=== PATIENT | male | born 1950 | race Caucasian/White ===

== ENCOUNTER → 2016-03-19 | Outpatient (CLI) | payer MEDICARE, MEDICAID ==
[2016-03-19 10:10] LABS: ALBUMIN 3.4 GM/DL (3.2-5.2); ALBUMIN/GLOBULIN RATIO 1.21 (1.00-1.93); ALKALINE PHOSPHATASE 128 U/L (45-117); ALT/SGPT 16 U/L (12-78); ANION GAP 7 MEQ/L (8-16); AST/SGOT 13 U/L (15-37); BILIRUBIN,TOTAL 0.3 MG/DL (0.2-1.0); BLOOD UREA NITROGEN 15 MG/DL (7-18); CALCIUM LEVEL 8.4 MG/DL (8.8-10.2); CARBON DIOXIDE LEVEL 31 MEQ/L (21-32); CHLORIDE LEVEL 102 MEQ/L (98-107); CREATININE FOR GFR 0.81 MG/DL (0.70-1.30); GLOMERULAR FILTRATION RATE > 60.0 (>49); GLUCOSE, FASTING 122 MG/DL (80-110); POTASSIUM SERUM 4.3 MEQ/L (3.5-5.1); SODIUM LEVEL 140 MEQ/L (136-145); TOTAL PROTEIN 6.2 GM/DL (6.4-8.2)
== END ==
LOC: M LAB 08:46
PROVIDERS: ATTEND Internal Medicine
DX: S00.83XA Contusion of other part of head, initial encounter (principal); X58.XXXA Exposure to other specified factors, initial encounter; Y92.89 Other specified places as the place of occurrence of the external cause; Y93.89 Activity, other specified; Y99.8 Other external cause status

== ENCOUNTER → 2016-05-05 | Outpatient (CLI) | payer MEDICARE, MEDICAID ==
[2016-05-05 18:02] LABS: BLOOD UREA NITROGEN 15 MG/DL (7-18); GLOMERULAR FILTRATION RATE > 60.0 (>49)
== END ==
LOC: M LAB 16:06
PROVIDERS: ATTEND Otolaryngology
DX: R22.1 Localized swelling, mass and lump, neck (principal)

== ENCOUNTER → 2016-05-13 | Outpatient (CLI) | payer MEDICARE, MEDICAID ==
[~2016-05-13] MED LIST: ISOVUE-370 76% 100ML VIAL (Q9967) As Ordered ONE
--- NOTE | 2016-05-13 16:03 | REP ---
CT BRAIN WITHOUT AND WITH CONTRAST: 05/13/2016. Comparison: 03/23/2016 and 06/02/2015. Clinical history. Soft tissue swelling superolateral to the right orbit with mass. Technique: Precontrast and postcontrast imaging performed through the brain with bone windows provided. Dose of 75 ml of Isovue 370 given. Findings: The precontrast images show lacunar infarct in left basal ganglia, unchanged. Lateral ventricles symmetric without dilatation or displacement, their size proportionate to mild atrophy. There is more cerebellar atrophy, however, and this is symmetric, but unchanged. Brainstem was unremarkable. Escobar-white junction differentiation maintained. However, there are areas of decreased attenuation in the periventricular white matter representing small-vessel ischemic disease. No intraparenchymal mass, hemorrhage, edema or midline shift. After contrast administration, there is no abnormal enhancement, mass, gyriform enhancement, abnormal meningeal enhancement or vascular lesion identified. Basal cisterns are intact. Mastoids and visualized sinuses were clear. The skull base and calvarium show no fracture or focal lesion. The soft tissue mass lateral to the orbit is much reduced in size with some enhancement in this region up to 4.7 mm in thickness whereas on the previous study at the same level it measured 13.5 mm in thickness. Increased attenuation with contrast is noted. Enhancement along the galea on that right side is noted. The mass seen in the preauricular region on the 2016 CT is no longer present. There are no other scalp masses identified. The bone windows show no fracture or focal lesion of the calvarium or skull base. Mastoids intact. Impression: 1. Much improved soft tissue mass in the right periorbital soft tissues. Has a maximum thickness now 4.7 mm. On the February study, it had a thickness of 13.5 mm. It was intermediate between those two values in the May 2015 exam. 2. Resolution entirely in the preauricular soft tissue mass with enhancement compared to the appearance on the 2016 study. 3. Old lacunar infarcts in the basal ganglia with some chronic small vessel white matter ischemic changes and atrophy of the cerebellum, greater than cerebral hemispheres. No enhancing mass within the brain, intracranial hemorrhage, acute infarct or other significant finding. Signed by Jerrod Modi MD 05/13/2016 04:22 P
--- NOTE | 2016-05-13 16:21 | REP ---
CT NECK WITH CONTRAST: 05/13/2016. Clinical history: Lymphoma. Prominent left torus tubarius. Mass superior lateral to the right orbit. TECHNIQUE: The patient received a bolus of 75 ml of Isovue 370, scanning through the neck with coronal and sagittal reconstructions. Bone windows are also reviewed. FINDINGS: Thickening of soft tissues lateral to the right orbit noted in part on this study; it is thinner than on the CT brain 03/23/2016. Please see CT brain report. Base of the brain was grossly intact. Bone windows show visualized sinuses and mastoids clear. Orbits and contents are grossly symmetric and unremarkable. Septum is deviated towards the right. The craniocervical junction is intact. There is spondylosis at C6-7 without compression fracture or destructive lesion. There is no central canal stenosis. The nasopharyngeal airway is patent. There is fullness of the left tonsil and torus tubarius in the left nasopharynx. Slight narrowing of that nasopharyngeal airway. The hypopharynx is without mass. The epiglottis, valleculae and piriform sinuses were intact. The larynx and subglottic trachea unremarkable. Symmetric sternocleidomastoid muscles noted. The submandibular and parotid glands are generally symmetric and grossly intact as well. Tongue base is grossly unremarkable. Parapharyngeal space shows fat planes preserved. No pathologic sized submental, jugular, anterior or posterior cervical chain nodes with scattered shotty nodes on both sides. The right carotid space shows an 8.3 mm node on image 33 with the left carotid space showing the largest node 7.6 mm diameter. Bone windows shows spinous processes, lamina, pedicles, facets, transverse processes and transverse foramina grossly intact. There are some minor degenerative changes. The first three paired ribs and thoracic vertebral bodies were unremarkable and the lung apices show minor fibrotic changes without acute finding. The aortic arch without aneurysm, but quite ectatic and only seen in part. No supraclavicular mass. IMPRESSION: 1. Fullness of the left torus tubarius and extending down into the left tonsil with some nasopharyngeal airway stenosis. Right tonsil is smaller. The epiglottis, piriform sinuses and valleculae unremarkable. 2. Scattered nodes bilaterally with no pathologic sized adenopathy and with the submandibular and parotid glands symmetric and normal. The oropharynx, hypopharynx, larynx and trachea intact. 3. Cervical spondylosis C6-7. Signed by Jerrod Modi MD 05/13/2016 04:23 P
== END ==
LOC: M RAD 14:26
PROVIDERS: ATTEND Otolaryngology
DX: R22.1 Localized swelling, mass and lump, neck (principal)
CPT/HCPCS: 70470; 70491; Q9967

== ENCOUNTER → 2016-06-22 | Day surgery (SDC) | payer MEDICARE, MEDICAID ==
[~2016-06-22] VITALS: Ht 170.2 cm; Wt 96.6 kg
[~2016-06-22] MED LIST changes: +ASPI32ECTA PO; +CALC500T36 PO; +CLAR10CA3 PO; +DEBR6.5S4 AU; +DESFLURANE 240 ML INHALANT As Ordered ONE; +DITR5TAB PO; +EPINEPHrine 1MG/ML INJ 30ML MD-VIAL As Ordered ONE; +ETOMIDATE INJ 20MG/10ML VIAL As Ordered ONE; -ISOVUE-370 76% 100ML VIAL (Q9967) As Ordered ONE; +LIDOCAINE 2% INJ 100 MG/5 ML SDV (FOR ANES.) As Ordered ONE; +LIDOCAINE W/EPINEPHRINE 1% 20ML VIAL As Ordered ONE; +LORA10CA PO; +LR 1,000 ML IV SCH; +LUPR45IN IM; +LUTE6CAP2 PO; +METHYLENE BLUE 0.5% (5MG/ML) 10 ML AMP (PROVAYBLUE)(Q9968 PER 1MG) As Ordered ONE; +MULT1TAB28 PO; +ONDANSETRON 4MG/2ML VIAL (J2405) As Ordered ONE; +ONDANSETRON 4MG/2ML VIAL (J2405) IV PRN; +PERCOCET 5MG/325MG TAB PO PRN; +PHEN1TAB26 PO; +PHEN64.8 PO; +PROPOFOL 200 MG/20 ML VIAL As Ordered ONE; +PROT1TAB2 PO; +TUSSLIQ3 PO; +VITA-112 PO; +dexameTHASONE 4 MG/ML 1ML VIAL (J1100) IV ONE; +fentaNYL 100 MCG/2 ML INJECTION (J3010) As Ordered ONE; +fentaNYL 100 MCG/2 ML INJECTION (J3010) IV PRN
[2016-06-22 15:27] VITALS: BP 162/85
--- NOTE | 2016-07-02 19:27 | RO ---
DATE OF PROCEDURE: 06/22/2016 PREOPERATIVE DIAGNOSIS: Swelling of the left nasopharynx and left oropharynx. POSTOPERATIVE DIAGNOSIS: Swelling of the left nasopharynx and left oropharynx. PROCEDURE PERFORMED: 1. Nasal endoscopy with biopsy of the left nasopharynx and left torus tubarius. 2. Biopsy of the mass of the left oropharynx. SURGEON: Tyler Hoover MD POWER OPERATOR: ANESTHESIA: General. CLINICAL PREAMBLE: This 66-year-old man presented to the office initially for consultation of a swelling over the right forehead region. This has resolved. Patient has history of lymphoma. Physical examination revealed a mass lesion extending from the left nasopharynx down to the left oropharynx. The finding was confirmed on the CT scan of the neck. Management options including biopsy of the swelling of the left nasopharynx and oropharynx have been discussed. He understood and consented to the procedure. DESCRIPTION OF PROCEDURE: Patient was identified in preoperative holding and brought to the operating room in stable condition. In supine position on the operating table, patient received general anesthesia followed by orotracheal intubation without incident. Patient was prepped and draped in the usual fashion for the above procedure. Both sides of the nasal cavity were packed using pledgets soaked in 1:1000 epinephrine. After a waiting period, the pledgets were removed. Both sides of the nasal cavity were inspected using 0-degree nasal endoscope. Swelling of the left nasopharynx was noted. Biopsy was performed from the swelling of the left nasopharynx. Biopsy was also performed from the inferior aspect of the left torus tubarius, which also appeared to be swollen. At this time, hemostasis was achieved using pledgets soaked in Afrin solution placed over the biopsy site. The Ac-Artemio gag then was inserted and suspended. A long nodular swelling was noted to be posterior to the left posterior tonsil pillar. Decision was then made to perform the two 5 mm punch biopsy from the lesion. Hemostasis was achieved using silver nitrate, and the wound was then closed using #3-0 chromic suture. All the biopsy specimens were sent to pathology as fresh specimen according to the lymphoma protocol for further processing. At the end of the procedure, sponge and instrument counts were correct. No complication was encountered. Estimated blood loss was less than 10 mL. General anesthesia was reversed, and patient was extubated and brought to recovery room in stable condition.
== END | disposition home or self-care (01) ==
LOC: M SDC 10:00
PROVIDERS: ATTEND Otolaryngology
DX: C85.12 Unspecified B-cell lymphoma, intrathoracic lymph nodes (principal); E78.00 Pure hypercholesterolemia, unspecified; K21.9 Gastro-esophageal reflux disease without esophagitis; R29.898 Other symptoms and signs involving the musculoskeletal system; G40.909 Epilepsy, unspecified, not intractable, without status epilepticus; I25.2 Old myocardial infarction; C61 Malignant neoplasm of prostate; I10 Essential (primary) hypertension; N40.0 Benign prostatic hyperplasia without lower urinary tract symptoms; R32 Unspecified urinary incontinence; I49.9 Cardiac arrhythmia, unspecified; C85.90 Non-Hodgkin lymphoma, unspecified, unspecified site; Z88.4 Allergy status to anesthetic agent; Z79.899 Other long term (current) drug therapy; Z79.82 Long term (current) use of aspirin; Z95.0 Presence of cardiac pacemaker; Z87.820 Personal history of traumatic brain injury; Z92.3 Personal history of irradiation; Z87.891 Personal history of nicotine dependence
CPT/HCPCS: 31237; 88305; J1100; J2405; J3010; Q9968

== ENCOUNTER → 2016-07-08 | Outpatient (CLI) | payer MEDICARE, MEDICAID ==
[~2016-07-08] MED LIST changes: -DESFLURANE 240 ML INHALANT As Ordered ONE; -EPINEPHrine 1MG/ML INJ 30ML MD-VIAL As Ordered ONE; -ETOMIDATE INJ 20MG/10ML VIAL As Ordered ONE; -LIDOCAINE 2% INJ 100 MG/5 ML SDV (FOR ANES.) As Ordered ONE; -LIDOCAINE W/EPINEPHRINE 1% 20ML VIAL As Ordered ONE; -LR 1,000 ML IV SCH; -METHYLENE BLUE 0.5% (5MG/ML) 10 ML AMP (PROVAYBLUE)(Q9968 PER 1MG) As Ordered ONE; -ONDANSETRON 4MG/2ML VIAL (J2405) As Ordered ONE; -ONDANSETRON 4MG/2ML VIAL (J2405) IV PRN; -PERCOCET 5MG/325MG TAB PO PRN; -PROPOFOL 200 MG/20 ML VIAL As Ordered ONE; -dexameTHASONE 4 MG/ML 1ML VIAL (J1100) IV ONE; -fentaNYL 100 MCG/2 ML INJECTION (J3010) As Ordered ONE; -fentaNYL 100 MCG/2 ML INJECTION (J3010) IV PRN
== END ==
LOC: M LAB 12:27
PROVIDERS: ATTEND Radiology Radiation Oncology
DX: C61 Malignant neoplasm of prostate (principal)

== ENCOUNTER → 2016-07-20 | Outpatient (CLI) | payer MEDICARE, MEDICAID ==
[~2016-07-20] MED LIST changes: +ACET-654 PO; +COLA100C3 PO; +OXYB5TA PO
--- NOTE | 2016-07-21 10:12 | REP ---
PET/CT: HISTORY: Staging follicular lymphoma. There is also a history of adenocarcinoma of the prostate. COMPARISONS: Comparison PET/CT study July 24, 2015. TECHNIQUE: 57 minutes following the intravenous injection of a 9.7 mCi dose of F-18 FDG, three-dimensional PET scintigraphy is acquired from the skull base to the proximal thighs. Triplanar noncontrast CT scanning is acquired through the same anatomic range for attenuation correction, and image registration with scan parameters optimized to minimize radiation exposure to the patient. PET scintigraphy and CT datasets were fused and displayed on a workstation with multiplanar and projection display capability. PET/CT FINDINGS: There is an area of linear physiologic skeletal muscle uptake in the periarticular muscles of the right shoulder. There is also some skeletal muscle uptake adjacent to the right hip. Hiatal hernia, ventral, and right inguinal hernias are again seen. There is a subcentimeter, normal size, hypermetabolic lymph node in the right anterior jugular chain at the level of the angle of the mandible. Maximum standard uptake value 6.1. There is normal variant parapharyngeal uptake. There is a right supraclavicular hypermetabolic node as well. This displays a maximum standard uptake value of 6.6. This node is slightly larger 1.8 cm in greatest diameter. There is minimally hypermetabolic uptake in a right axillary lymph node with maximum SUV value 2.9. This lymph node measures 1.3 x 0.5 cm. There is mildly hypermetabolic uptake in a tiny right hilar lymph node inferiorly, maximum standard uptake value 4.4. The spleen is mildly enlarged measuring 13.8 cm today. This dimension is increased from the comparison CT study March 31, 2016 when this dimension was 11.5 cm. There is a mottled pattern of increased uptake in the spleen with standard uptake value ranging up to 6.4. No pulmonary parenchymal hypermetabolic uptake is seen. There is some linear fibrosis in the right upper lobe. There is mildly increased hypermetabolic uptake in a small periaortic pericaval lymph node in the retroperitoneum. Maximum standard uptake value 3.4, this small node measures 6 x 11 mm. There is discernible non-hypermetabolic uptake in a elizabet tissue in the left distal external iliac lymph node chain, just above the inguinal canal. Maximum SUV value here is 2.1. This is less prominent than on the prior study. No inguinal adenopathy or elizabet hypermetabolic uptake is seen. IMPRESSION: In comparison with the prior study of July 24, 2015, the inguinal and pelvic elizabet activity has regressed significantly. Retroperitoneal elizabet activity is less prominent. However, the spleen has enlarged and its uptake is more avid. The axillary elizabet uptake seen previously and the mediastinal elizabet uptake seen previously have regressed. There is less neck elizabet uptake. Signed by Pelon Ash MD 07/21/2016 02:08 P
== END ==
LOC: M PLARAD 12:30
PROVIDERS: ATTEND Internal Medicine Medical Oncology
DX: C82.90 Follicular lymphoma, unspecified, unspecified site (principal); R16.1 Splenomegaly, not elsewhere classified; Z85.46 Personal history of malignant neoplasm of prostate
CPT/HCPCS: 78815; A9552

== ENCOUNTER → 2016-07-21 | Outpatient (CLI) | payer MEDICARE, MEDICAID ==
[~2016-07-21] MED LIST changes: -ACET-654 PO; -COLA100C3 PO; -OXYB5TA PO
--- NOTE | 2016-07-22 05:26 | RADONC ---
RADIATION ONCOLOGY FOLLOWUP NOTE: DATE: 07/21/2016 CHART NUMBER: [id number]. DIAGNOSIS: Prostate cancer. STAGE: II A, [id number]. ECOG PERFORMANCE STATUS: Zero FOLLOWUP NOTE: Mr. Lemus is a very pleasant, 66-year-old white male with the diagnosis of a stage II A, [id number] moderate to poorly differentiated, [place] score 7 (3-4), adenocarcinoma of prostate who is presenting to us today for routine followup visit 7 months post completion of external beam radiation therapy. The patient presents today reporting that he is doing quite well with no complaints at this time related to his radiation therapy or disease. He has no urinary bowel difficulties. No bone pain. REVIEW OF SYSTEMS: The patient's review of systems is positive for continued physical limitations. He walks with a walker. He denies nausea, vomiting, fevers, chills, night sweats, diplopia, headaches, anxiety or depression, anorexia, weight loss, visual disturbances, chest pain, urinary or bowel difficulties, bone pain. PHYSICAL EXAMINATION: The patient is a well-developed, well-nourished male in no acute distress. HEENT exam is normocephalic, atraumatic. Extraocular movements are intact. There is no palpable cervical, supraclavicular, infraclavicular, axillary, or inguinal lymphadenopathy present. Lungs are clear to auscultation and percussion. Heart has a regular rate and rhythm. Abdomen is benign with no hepatosplenomegaly, masses, or tenderness. Rectal examination reveals a normal anal sphincter tone. His prostate is smooth with no evidence of nodularity. Skeletal examination reveals no tenderness to pressure or percussion of the bony skeleton. Extremities reveal no clubbing, cyanosis, or edema. Neurologic exam is grossly intact, as is the remainder of the physical examination. ASSESSMENT: The patient is clinically EYAD at this time and will be seen by us again in 6 months for further followup. He will also continue to be followed by his other physicians as well. cc: Dontrell Lloyd MD
== END ==
LOC: M ONCR 13:43
PROVIDERS: ATTEND Radiology Radiation Oncology
DX: C61 Malignant neoplasm of prostate (principal)

== ENCOUNTER 2016-08-11 10:46 | Emergency (ER) | payer MEDICARE, MEDICAID ==
[~2016-08-11] VITALS: Ht 172.7 cm; Wt 94.7 kg
[2016-08-11] MEDS ORDERED: OXYB5TA PO (11:16)
[2016-08-11] MEDS ORDERED: ACET-654 PO (11:19)
[2016-08-11] MEDS ORDERED: COLA100C3 PO (11:22)
[2016-08-11 12:09] LABS: BASO % 0.3 % (0.0-1.0); EOS % 0.7 % (0.0-3.0); LARGE UNSTAINED CELL % 0.4 % (0.0-4.0); LYMPH # 0.4 K/mm3 (1.5-4.5); LYMPH % 18.4 % (24.0-44.0); MEAN CORPUSCULAR HEMOGLOBIN 33.9 pg (27.0-33.0); MEAN CORPUSCULAR VOLUME 96.9 fl (80.0-96.0); MONO % 0.9 % (0.0-5.0); NEUTROPHILS # 1.8 K/mm3 (1.8-7.7); NEUTROPHILS % 79.2 % (36.0-66.0); PLATELET COUNT, AUTOMATED 108 k/mm3 (150-450); RED CELL DISTRIBUTION WIDTH 12.7 % (11.5-14.5); WHITE BLOOD COUNT 2.2 K/mm3 (4.0-10.0)
[2016-08-11 12:20] LABS: ANION GAP 10 MEQ/L (8-16); BLOOD UREA NITROGEN 23 MG/DL (7-18); CALCIUM LEVEL 8.5 MG/DL (8.8-10.2); CARBON DIOXIDE LEVEL 27 MEQ/L (21-32); CHLORIDE LEVEL 100 MEQ/L (98-107); CREATININE FOR GFR 0.89 MG/DL (0.70-1.30); GLOMERULAR FILTRATION RATE > 60.0 (>49); GLUCOSE, FASTING 120 MG/DL (80-110); POTASSIUM SERUM 3.6 MEQ/L (3.5-5.1); SODIUM LEVEL 137 MEQ/L (136-145)
--- NOTE | 2016-08-11 12:34 | REP ---
SINGLE VIEW CHEST: COMPARISON: 08/04/2015. There is no evidence of acute infiltrate. No pleural effusion is seen. The heart is normal in size. The mediastinal silhouette is unremarkable. The visualized osseous structures are intact. Left dual lead pacemaker is again noted unchanged in position. IMPRESSION: No acute pulmonary disease. Signed by Handy Escobar MD 08/11/2016 07:47 P
--- NOTE | 2016-08-11 13:18 | REP ---
KUB ABDOMEN AND PELVIS: KUB film of the abdomen and pelvis performed. There is moderate fecal material in both the splenic flexure and hepatic flexure without evidence of bowel obstruction. No dilated small bowel loops are seen. There are two phleboliths in the left pelvis. There are six metallic clips in the lower pelvis in the region of the prostate. Metallic clips are seen in the right upper quadrant. There are degenerative changes of the spine. IMPRESSION: Moderate fecal material in the flexures of the colon superiorly. No evidence of bowel obstruction. Signed by Handy Escobar MD 08/11/2016 07:47 P
[2016-08-11 13:55] VITALS: BP 107/63
--- NOTE | 2016-08-11 16:32 | ECGEPIP ---
Stationary ECG Study [facility] [place] - ED Test Date: 2016-08-11 Pat Name: JEFFREY EVANS Department: Room: - Gender: M Right Of Way Cutter: jayme : 1950 Requested By: Rex Salas Order Number: [id number] Reading MD: Leti Larry Measurements Intervals Connelly Rate: 69 P: 14 ME: 186 QRS: 30 QRSD: 86 T: 12 QT: 381 QTc: 410 Interpretive Statements ELECTRONIC ATRIAL PACEMAKER ABNORMAL RHYTHM ECG NSTTW ABNORMALITY NO PRIOR FOR COMPARISON Electronically Signed On 08-11-2016 16:31:46 EDT by Leti Larry
== END 2016-08-11 14:08 | disposition home or self-care (01) ==
LOC: EDBD 10:46 → M ED 11:41
DX: R55 Syncope and collapse (principal); C85.90 Non-Hodgkin lymphoma, unspecified, unspecified site; G40.909 Epilepsy, unspecified, not intractable, without status epilepticus; K59.00 Constipation, unspecified; Z95.0 Presence of cardiac pacemaker; R94.31 Abnormal electrocardiogram [ECG] [EKG]; Z79.899 Other long term (current) drug therapy; Z79.82 Long term (current) use of aspirin; Z88.8 Allergy status to other drugs, medicaments and biological substances; Z85.46 Personal history of malignant neoplasm of prostate

== ENCOUNTER → 2016-09-03 | Outpatient (CLI) | payer MEDICARE, MEDICAID ==
[~2016-09-03] MED LIST changes: +ACET1TAB17 PO; +ASPI325T24 PO; -ASPI32ECTA PO; +COLA100C5 PO; +OXYB5TAB10 PO
== END ==
LOC: M LAB 14:33
PROVIDERS: ATTEND Urology
DX: C61 Malignant neoplasm of prostate (principal)

== ENCOUNTER 2016-10-18 10:28 | Outpatient (CLI) | payer MEDICARE, MEDICAID ==
[~2016-10-18] VITALS: Ht 171.4 cm; Wt 90.9 kg
[~2016-10-18 10:28] MED LIST changes: +ACETAMINOPHEN TAB 650MG DOSE (2X325MG) PO SCH; +diphenhydrAMINE 25 MG CAP PO SCH
[2016-10-18 11:10] VITALS: BP 104/67
== END 2016-10-18 21:13 | disposition home or self-care (01) ==
LOC: M OPCLI4PV 10:28 → M MSPAV 10:33 → M OPCLI4PV 21:13
PROVIDERS: ATTEND Internal Medicine Medical Oncology
DX: D64.9 Anemia, unspecified (principal); Z88.8 Allergy status to other drugs, medicaments and biological substances; Z79.899 Other long term (current) drug therapy
CPT/HCPCS: 36430; 86850; 86900; 86901; 86920; P9016

== ENCOUNTER 2016-10-27 09:54 | Outpatient (CLI) | payer MEDICARE, MEDICAID ==
[~2016-10-27 09:54] MED LIST changes: +ACETAMINOPHEN TAB 650MG DOSE (2X325MG) PO SCH; +diphenhydrAMINE 25 MG CAP PO SCH
== END 2016-10-27 16:00 | disposition home or self-care (01) ==
LOC: M INFU 09:54
PROVIDERS: ATTEND Internal Medicine Medical Oncology
DX: D64.9 Anemia, unspecified (principal); C85.90 Non-Hodgkin lymphoma, unspecified, unspecified site; C61 Malignant neoplasm of prostate; Z79.899 Other long term (current) drug therapy; Z79.82 Long term (current) use of aspirin; Z88.8 Allergy status to other drugs, medicaments and biological substances
CPT/HCPCS: 36430; 85652; 86850; 86880; 86900; 86901; 86920; P9016

== ENCOUNTER → 2016-10-27 | Outpatient (REF) | payer MEDICAID ==
[~2016-10-27] MED LIST changes: -ACETAMINOPHEN TAB 650MG DOSE (2X325MG) PO SCH; -diphenhydrAMINE 25 MG CAP PO SCH
== END ==
LOC: M LAB REF 08:14
PROVIDERS: ATTEND Internal Medicine Medical Oncology
DX: C85.90 Non-Hodgkin lymphoma, unspecified, unspecified site (principal); C61 Malignant neoplasm of prostate

== ENCOUNTER → 2016-10-27 | Outpatient (REF) | payer MEDICAID | LOC: M LAB REF 08:50 | PROVIDERS: ATTEND Internal Medicine Medical Oncology | DX: D64.9 Anemia, unspecified (principal) ==

== ENCOUNTER → 2017-01-15 | Outpatient (CLI) | payer MEDICARE, MEDICAID ==
[~2017-01-15] MED LIST changes: -ACETAMINOPHEN TAB 650MG DOSE (2X325MG) PO SCH; -diphenhydrAMINE 25 MG CAP PO SCH
== END ==
LOC: M WUC 10:54
PROVIDERS: ATTEND Radiology Radiation Oncology
DX: C61 Malignant neoplasm of prostate (principal)

== ENCOUNTER → 2017-01-19 | Outpatient (CLI) | payer MEDICARE, MEDICAID ==
--- NOTE | 2017-01-22 08:34 | RADONC ---
RADIATION ONCOLOGY FOLLOWUP NOTE DATE: 01/19/2017 CHART NUMBER: [id number] DIAGNOSIS: Prostate cancer. STAGE: Stage II A, [id number]. ECOG PERFORMANCE STATUS: 3. FOLLOWUP NOTE: Mr. Lemus is a very pleasant 66-year-old white male with the diagnosis of a stage II A, [id number], moderate to poorly differentiated [place] score 7 (3-4) adenocarcinoma of the prostate who is presenting to us today for routine followup visit 1 year post completion of external beam radiation therapy. The patient presents today reporting that generally he is doing quite well. He is continuing his systemic therapy for his non-Hodgkin's lymphoma with Dr. Max. With regards to his prostate cancer, he is having no urinary or bowel difficulties. No bone pain. The patient's review of systems is positive for physical limitations. He is in a nursing care facility. His review of systems are basically unchanged. He denies nausea, vomiting, fevers, chills, night sweats, diplopia, headaches, anxiety or depression, anorexia, weight loss, visual disturbances, chest pains, urinary or bowel difficulties, or bone pain. He does have intellectual limitations. ASSESSMENT: The patient is clinically doing well at this point with no evidence of recurrent disease. I have not set him up to see me again at this time since he is being followed closely by his medical oncologist on a routine monthly basis at this point. cc: MD Dontrell Morris MD
== END ==
LOC: M ONCR 13:17
PROVIDERS: ATTEND Radiology Radiation Oncology
DX: C61 Malignant neoplasm of prostate (principal)

== ENCOUNTER → 2017-02-16 | Outpatient (CLI) | payer MEDICARE, MEDICAID ==
--- NOTE | 2017-02-17 06:58 | REP ---
PET/CT: History: Restaging for grade 3 follicular lymphoma, biopsy of nasopharyngeal lesion. Status post chemotherapy for aggressive non-Hodgkin's lymphoma in 2013 and 2013. Also history of prostate carcinoma. Comparisons: Comparison PET-CT study July 20, 2016. TECHNIQUE: 52 minutes following the intravenous injection of a 10.3 mCi dose of F-18 FDG, three-dimensional PET scintigraphy is acquired from the skull base to the proximal thighs. Triplanar noncontrast CT scanning is acquired through the same anatomic range for attenuation correction, and image registration with scan parameters optimized to minimize radiation exposure to the patient. PET scintigraphy and CT datasets were fused and displayed on a workstation with multiplanar and projection display capability. PET/CT Findings: Previously noted focus of hypermetabolic uptake in the right subclavicular region has resolved. This lymph node is smaller on accompanying CT. Previously noted uptake in the right neck is no longer apparent. Head neck soft tissues are unremarkable today. There is some post injection vascular uptake in the right arm. No head and neck abnormal uptake is seen. No intrathoracic abnormal hypermetabolic uptake is seen. No abnormal retroperitoneal uptake is observed. Impression: Negative PET scintigraphy. Previously noted foci of increased uptake no longer apparent. Signed by Pelon Ash MD 02/17/2017 08:11 A
== END ==
LOC: M PLARAD 09:22
PROVIDERS: ATTEND Internal Medicine Medical Oncology
DX: C82.20 Follicular lymphoma grade III, unspecified, unspecified site (principal); Z85.46 Personal history of malignant neoplasm of prostate; Z79.899 Other long term (current) drug therapy
CPT/HCPCS: 78815; A9552

== ENCOUNTER → 2017-02-18 | Outpatient (CLI) | payer MEDICARE, MEDICAID ==
[2017-02-18 13:02] LABS: BASO % 0.5 % (0.0-1.0); EOS # 0.1 10^3/uL (0.0-0.50); EOS % 2.2 % (0.0-3.0); IMMATURE GRANULOCYTE % 0.2 % (0-0); LYMPH % 25.6 % (24.0-44.0); MEAN CORPUSCULAR HGB CONC 33.3 g/dl (32.0-36.5); MEAN CORPUSCULAR VOLUME 105.1 fl (80.0-96.0); MONO # 0.4 10^3/uL (0.0-0.8); MONO % 9.7 % (0.0-5.0); NEUTROPHILS # 2.5 10^3/uL (1.8-7.7); NEUTROPHILS % 61.8 % (36.0-66.0); PLATELET COUNT, AUTOMATED 112 10^3/uL (150-450); RED CELL DISTRIBUTION WIDTH 12.1 % (11.5-14.5)
[2017-02-18 13:35] LABS: ALBUMIN 3.9 GM/DL (3.2-5.2); ALBUMIN/GLOBULIN RATIO 1.44 (1.00-1.93); ALKALINE PHOSPHATASE 127 U/L (45-117); ALT/SGPT 17 U/L (12-78); ANION GAP 8 MEQ/L (8-16); AST/SGOT 13 U/L (7-37); BILIRUBIN,TOTAL 0.3 MG/DL (0.2-1.0); BLOOD UREA NITROGEN 31 MG/DL (7-18); CALCIUM LEVEL 8.4 MG/DL (8.8-10.2); CARBON DIOXIDE LEVEL 29 MEQ/L (21-32); CHLORIDE LEVEL 103 MEQ/L (98-107); CREATININE FOR GFR 1.12 MG/DL (0.70-1.30); GLOMERULAR FILTRATION RATE > 60.0 (>49); GLUCOSE, FASTING 199 MG/DL (80-110); POTASSIUM SERUM 4.2 MEQ/L (3.5-5.1); SODIUM LEVEL 140 MEQ/L (136-145); TOTAL PROTEIN 6.6 GM/DL (6.4-8.2)
== END ==
LOC: M WUC 08:33
PROVIDERS: ATTEND Internal Medicine
DX: D64.9 Anemia, unspecified (principal); C85.13 Unspecified B-cell lymphoma, intra-abdominal lymph nodes

== ENCOUNTER → 2017-03-09 | Outpatient (CLI) | payer MEDICARE, MEDICAID ==
[2017-03-09 13:51] LABS: PROSTATIC SPECIFIC AG MONITOR 0.02 NG/ML (< 4.0)
== END ==
LOC: M WUC 08:44
DX: C61 Malignant neoplasm of prostate (principal)
CPT/HCPCS: 84153

== ENCOUNTER → 2017-03-10 | Outpatient (REF) | payer MEDICARE, MEDICAID ==
[2017-03-10 14:26] LABS: BASO % 0.5 % (0.0-1.0); EOS # 0.1 10^3/uL (0.0-0.50); EOS % 2.7 % (0.0-3.0); HEMOGLOBIN 10.8 g/dl (14.0-18.0); IMMATURE GRANULOCYTE % 0.3 % (0-0); LYMPH # 0.9 10^3/uL (1.5-4.5); LYMPH % 24.9 % (24.0-44.0); MEAN CORPUSCULAR HEMOGLOBIN 35.1 pg (27.0-33.0); MEAN CORPUSCULAR HGB CONC 33.8 g/dl (32.0-36.5); MEAN CORPUSCULAR VOLUME 103.9 fl (80.0-96.0); MONO # 0.6 10^3/uL (0.0-0.8); MONO % 15.1 % (0.0-5.0); NEUTROPHILS # 2.1 10^3/uL (1.8-7.7); NEUTROPHILS % 56.5 % (36.0-66.0); PLATELET COUNT, AUTOMATED 101 10^3/uL (150-450); RED BLOOD COUNT 3.08 10^6/uL (4.30-6.10); RED CELL DISTRIBUTION WIDTH 12.1 % (11.5-14.5); WHITE BLOOD COUNT 3.7 10^3/uL (4.0-10.0)
[2017-03-10 14:59] LABS: ALBUMIN 4.1 GM/DL (3.2-5.2); ALBUMIN/GLOBULIN RATIO 1.58 (1.00-1.93); ALKALINE PHOSPHATASE 128 U/L (45-117); ALT/SGPT 21 U/L (12-78); ANION GAP 6 MEQ/L (8-16); AST/SGOT 14 U/L (7-37); BILIRUBIN,TOTAL 0.3 MG/DL (0.2-1.0); BLOOD UREA NITROGEN 24 MG/DL (7-18); CALCIUM LEVEL 8.8 MG/DL (8.8-10.2); CARBON DIOXIDE LEVEL 31 MEQ/L (21-32); CHLORIDE LEVEL 103 MEQ/L (98-107); CREATININE FOR GFR 1.02 MG/DL (0.70-1.30); GLOMERULAR FILTRATION RATE > 60.0 (>49); GLUCOSE, FASTING 92 MG/DL (80-110); PHENOBARBITAL LEVEL 20.1 UG/ML (15.0-40.0); POTASSIUM SERUM 4.7 MEQ/L (3.5-5.1); SODIUM LEVEL 140 MEQ/L (136-145); TOTAL PROTEIN 6.7 GM/DL (6.4-8.2)
[2017-03-10 15:04] LABS: TOTAL 25(OH) VITAMIN D 50.6 NG/ML (30.0-100.0)
== END ==
LOC: M LABNEURO 14:05
DX: G40.909 Epilepsy, unspecified, not intractable, without status epilepticus (principal); E55.9 Vitamin D deficiency, unspecified
CPT/HCPCS: 80184

== ENCOUNTER → 2017-08-29 | Outpatient (CLI) | payer MEDICARE, MEDICAID ==
[2017-08-29 18:38] LABS: PROSTATIC SPECIFIC AG MONITOR 0.02 NG/ML (< 4.0)
== END ==
LOC: M WUC 15:13
DX: C61 Malignant neoplasm of prostate (principal)
CPT/HCPCS: 84153

== ENCOUNTER → 2017-10-17 | Outpatient (CLI) | payer MEDICARE, MEDICAID ==
[2017-10-17 17:30] LABS: PHENOBARBITAL LEVEL 19.1 UG/ML (15.0-40.0)
== END ==
LOC: M WUC 15:16
DX: R56.9 Unspecified convulsions (principal)
CPT/HCPCS: 80184

== ENCOUNTER 2017-12-14 12:46 | Day surgery (SDC) | payer MEDICARE, MEDICAID ==
[~2017-12-14 12:46] MED LIST changes: -ACET1TAB17 PO; -ASPI325T24 PO; -CALC500T36 PO; -CLAR10CA3 PO; -COLA100C5 PO; -DEBR6.5S4 AU; -DITR5TAB PO; +LIDOCAINE 1% MDV 20ML VIAL SQ; -LORA10CA PO; -LUPR45IN IM; -LUTE6CAP2 PO; -MULT1TAB28 PO; -OXYB5TAB10 PO; -PHEN1TAB26 PO; -PHEN64.8 PO; -PROT1TAB2 PO; -TUSSLIQ3 PO; -VITA-112 PO
[2017-12-14] MEDS ORDERED: MIDAZOLAM INJ 2 MG/2 ML VIAL (J2250) As Ordered (12:50)
[2017-12-14] MEDS ORDERED: fentaNYL 100 MCG/2 ML INJECTION (J3010) As Ordered (12:50)
[2017-12-14] MEDS ORDERED: ceFAZolin 1GM INJ (J0690 PER 500MG) As Ordered (13:04)
[2017-12-14] MEDS ORDERED: ceFAZolin SOD 1 GM in D5W MINI-BAG PLUS 50 ML IV (13:15)
[2017-12-14] MEDS ORDERED: ONDANSETRON 4MG/2ML VIAL (J2405) As Ordered (13:20)
[2017-12-14] MEDS ORDERED: PROPOFOL 200 MG/20 ML VIAL As Ordered (13:20)
[2017-12-14] MEDS ORDERED: dexameTHASONE 4 MG/ML 1ML VIAL (J1100) As Ordered (13:20)
[2017-12-14] MEDS: LR 1,000 ML IV (13:45)
[2017-12-14] MEDS ORDERED: LIDOCAINE 1% MDV 20ML VIAL As Ordered (14:09)
[2017-12-14] MEDS: LIDOCAINE 1% SDV INJ 30 ML VIAL As Ordered (15:15)
[2017-12-14] MEDS ORDERED: BACITRACIN OINT 30GM As Ordered (15:18)
== END 2017-12-14 16:15 | disposition home or self-care (01) ==
LOC: M SDC 12:46
DX: Z45.010 Encounter for checking and testing of cardiac pacemaker pulse generator [battery] (principal); I49.5 Sick sinus syndrome; K21.9 Gastro-esophageal reflux disease without esophagitis; E78.5 Hyperlipidemia, unspecified; Z79.82 Long term (current) use of aspirin; Z79.899 Other long term (current) drug therapy; G40.909 Epilepsy, unspecified, not intractable, without status epilepticus; Z86.73 Personal history of transient ischemic attack (TIA), and cerebral infarction without residual deficits; Z85.46 Personal history of malignant neoplasm of prostate; Z92.3 Personal history of irradiation; Z92.21 Personal history of antineoplastic chemotherapy; Z87.891 Personal history of nicotine dependence
CPT/HCPCS: 33228

== ENCOUNTER → 2018-01-18 | Outpatient (CLI) | payer MEDICARE, MEDICAID ==
[2018-01-18 14:08] LABS: PROSTATIC SPECIFIC AG MONITOR < 0.0 NG/ML (< 4.0)
== END ==
LOC: M ONCR 13:01
DX: C61 Malignant neoplasm of prostate (principal)
CPT/HCPCS: 84153

== ENCOUNTER → 2018-05-12 | Outpatient (CLI) | payer MEDICARE, MEDICAID ==
[~2018-05-12] MED LIST changes: +ACET1TAB55 PO; +ASPI325T25 PO; +CALC500T36 PO; +CLAR10CA3 PO; +COLA100C5 PO; +DEBR6.5S4 AU; +DITR5TAB PO; -LIDOCAINE 1% MDV 20ML VIAL SQ; +LORA10CA PO; +LUPR45IN IM; +LUTE6CAP2 PO; +MULT1TAB28 PO; +OXYB5TAB10 PO; +PHEN1TAB26 PO; +PHEN64.8 PO; +PROT1TAB2 PO; +TUSSLIQ3 PO; +VITA-112 PO
== END ==
LOC: M WUC 14:09
PROVIDERS: ATTEND Urology
DX: C61 Malignant neoplasm of prostate (principal)

== ENCOUNTER → 2018-08-19 | Outpatient (CLI) | payer MEDICARE, MEDICAID ==
[~2018-08-19] MED LIST changes: +ASPI-255 PO; -ASPI325T25 PO; +CALC12504 PO; -CALC500T36 PO
== END ==
LOC: M WUC 09:36
PROVIDERS: ATTEND Physician Assistant Medical
DX: R56.9 Unspecified convulsions (principal)

== ENCOUNTER → 2018-12-22 | Outpatient (CLI) | payer MEDICARE, MEDICAID ==
[~2018-12-22] MED LIST changes: -CALC12504 PO; +CALC500T61 PO; +MULTTAB4 PO
== END ==
LOC: M LAB 15:02
PROVIDERS: ATTEND Urology
DX: C61 Malignant neoplasm of prostate (principal)
CPT/HCPCS: 36415; 84153; G0463

== ENCOUNTER → 2019-01-24 | Outpatient (CLI) | payer MEDICARE, MEDICAID | LOC: M LAB 06:43 | PROVIDERS: ATTEND Physician Assistant Medical | DX: R56.9 Unspecified convulsions (principal) ==

== ENCOUNTER → 2019-01-24 | Outpatient (CLI) | payer MEDICARE, MEDICAID | LOC: M LAB 06:48 | PROVIDERS: ATTEND Urology | DX: C61 Malignant neoplasm of prostate (principal) ==

== ENCOUNTER 2019-08-15 19:04 | Inpatient (IN) | payer MEDICARE, MEDICAID ==
[~2019-08-15] VITALS: Ht 172.7 cm; Wt 85.4 kg
[~2019-08-15 19:04] MED LIST changes: +MULT1TAB74 PO; -MULTTAB4 PO
[2019-08-15 21:43] LABS: MEAN CORPUSCULAR HEMOGLOBIN 37.1 pg (27.0-33.0); MEAN CORPUSCULAR VOLUME 112.4 fl (80.0-96.0); RED BLOOD COUNT 0.89 10^6/uL (4.30-6.10); WHITE BLOOD COUNT 6.1 10^3/uL (4.0-10.0)
[2019-08-15 21:47] LABS: INR 1.28; PROTHROMBIN TIME 15.7 SECONDS (11.8-14.0)
[2019-08-15 21:48] LABS: PARTIAL THROMBOPLASTIN TIME 29.2 SECONDS (25.0-38.4)
[2019-08-15 21:55] LABS: HEMOGLOBIN 3.3 g/dl (13.5-17.5); PLATELET COUNT, AUTOMATED 29 10^3/uL (150-450)
[2019-08-15 22:04] LABS: LYMPHOCYTES 83 % (16-44); MONOCYTES 2 % (0-5); NEUTROPHILS 15 % (28-66)
[2019-08-15 22:05] LABS: ANISOCYTOSIS 1+; PLATELET ESTIMATE DECREASED (NORMAL)
[2019-08-15 22:37] LABS: ALBUMIN 3.5 GM/DL (3.2-5.2); ALT/SGPT 24 U/L (12-78); BILIRUBIN,DIRECT 0.2 MG/DL (0.0-0.2); BILIRUBIN,TOTAL 0.4 MG/DL (0.2-1.0); FERRITIN 321 NG/ML (26-388); IRON (FE) 252 UG/DL (65-175); LDH LACTATE DEHYDROGENASE 319 U/L (87-241); LIPASE 112 U/L (73-393); PERCENT SATURATION 94.7 % (19.7-50.0); TOTAL IRON BINDING CAPACITY 266 UG/DL (250-450); TOTAL PROTEIN 6.3 GM/DL (6.4-8.2)
[2019-08-15] MEDS ORDERED: VITAD1000T PO (22:38)
[2019-08-15 23:15] VITALS: BP 108/55
[2019-08-15 23:30] VITALS: BP 112/53
[2019-08-15] MEDS ORDERED: guaiFENesin DM LIQ 10ML UD PO PRN (23:45)
[2019-08-15] MEDS ORDERED: ACETAMINOPHEN 325 MG TAB PO PRN (23:45)
[2019-08-15 23:56] LABS: BLOOD UREA NITROGEN 45 MG/DL (7-18); CALCIUM LEVEL 8.2 MG/DL (8.8-10.2); CARBON DIOXIDE LEVEL 23 MEQ/L (21-32); CHLORIDE LEVEL 110 MEQ/L (98-107); CREATININE FOR GFR 1.44 MG/DL (0.70-1.30); GLOMERULAR FILTRATION RATE 51.9 (>49); GLUCOSE, FASTING 163 MG/DL (70-100); POTASSIUM SERUM 4.4 MEQ/L (3.5-5.1); SODIUM LEVEL 143 MEQ/L (136-145)
[2019-08-16] VITALS (31 sets, daily range): BP systolic 106–156; BP diastolic 51–85
--- NOTE | 2019-08-16 00:20 | HPEPDOC ---
[facility] Medical History & Physical Date of Admission Aug 16, 2019 Date of Service: Aug 16, 2019 Attending Physician: ANNETTA MEDELLIN MD History and Physical CHIEF COMPLAINT: Dizziness HISTORY OF PRESENT ILLNESS: 69-year-old male with past medical history of mental disability, CVA, non-Hodgkin's lymphoma, prostate cancer and seizure disorder presents from [facility] [[email or web address] for dizziness. Patient is a poor historian and unable to provide an accurate detail of recent events, information obtained from chart, medical staff and [facility] [[email or web address]] employee at bedside. Patient's healthcare proxy was called but did not answer his phone. As per [facility] [email or web address]] staff member. Patient started experiencing dizziness and appeared more confused over the past 24-48 hours, he has been at his usual state of health, otherwise, progressively feeling weakness recently. There has been no evidence of gross blood loss from vomiting/bowel movements/urination. Patient is comfortable and without any complaints at this time, denies shortness of breath, chest pain, nausea, vomiting, diarrhea or constipation. 10 point review of system is negative except for above PAST MEDICAL HISTORY: 1. Mental disability. 2. CVA. 3. Non-Hodgkin's lymphoma. 4. Prostate cancer. 5. Seizure disorder PAST SURGICAL HISTORY: 1. Permanent pacemaker. SOCIAL HISTORY: Unable to obtain FAMILY HISTORY: Unable to obtain ALLERGIES: Please see below. HOME MEDICATIONS: Please see below. PHYSICAL EXAMINATION: VITAL SIGNS: Please see below. GENERAL: No distress, pale HEENT: Normocephalic, atraumatic, moist mucous membranes NECK: Supple CARDIOVASCULAR EXAMINATION: S1, S2, no murmurs RESPIRATORY EXAMINATION: Scattered rhonchi, no wheezing ABDOMINAL EXAMINATION: Soft, nontender, nondistended, positive bowel sounds EXTREMITIES: Trace lower extremity edema SKIN: No rash NEUROLOGICAL EXAMINATION: no focal deficits PSYCHIATRIC EXAMINATION: Calm LABORATORY DATA: See below. MICROBIOLOGY: Please see below. ASSESSMENT: 69-year-old male with an extensive medical history, presents with severe anemia without any obvious blood loss. PLAN: 1. Severe anemia. Hemoglobin 3.3, no gross blood loss, prior history of multiple malignancies, hemolysis is less likely, iron studies adequate, also has severe thrombocytopenia, peripheral smear ordered, would likely benefit from hematology/oncology consultation, please consult in the morning. 2. Seizure disorder. Continue phenobarbital 3. Mental disability. Resides at [facility] [email or web address]], questionable DNR/DNI, but no MOLST in the chart, attempted to contact healthcare proxy but did not answer the phone. DVT prophylaxis: SCDs. GI prophylaxis: Not needed Vital Signs Vital Signs Date Time Temp Pulse Resp B/P (MAP) Pulse Ox O2 Delivery O2 Flow Rate FiO2 08/15/19 23:30 98.7 79 16 112/53 96 Room Air Laboratory Data Labs 24H Laboratory Tests 2 08/15/19 21:22: Neutrophils (%) (Auto) , Reticulocyte # (auto) 7.9L, Nucleated Red Blood Cells % (auto) 0.0, Neutrophils 15L, Lymphocytes (Manual) 83H, Monocytes (Manual) 2, Anisocytosis 1+, Macrocytosis 2+, Platelet Estimate DECREASED, Immature Platelet Fraction 5.1, Percent Reticulocyte Count 0.9, Reticulocyte Hemoglobin Equivalent 44.3H, Prothrombin Time 15.7H, Prothromb Time International Ratio 1.28, Activated Partial Thromboplast Time 29.2, Anion Gap 10, Glomerular Filtration Rate 51.9, Calcium Level 8.2L, Iron Level 252H, Total Iron Binding Capacity 266, Transferrin % Saturation 94.7H, Ferritin 321, Total Bilirubin 0.4, Direct Bilirubin 0.2, Aspartate Amino Transf (AST/SGOT) 22, Alanine Aminotransferase (ALT/SGPT) 24, Alkaline Phosphatase 173H, Lactate Dehydrogenase 319H, Total Protein 6.3L, Albumin 3.5, Albumin/Globulin Ratio 1.3, Lipase 112 08/15/19 21:28: POC Glucose (Misc Panel) 166H, POC Sodium (Misc Panel) 140, POC Potassium (Misc Panel) 4.3, POC Chloride (Misc Panel) 105, POC Total CO2 (Misc Panel) 20.0L, POC Blood Urea Nitrogen (Misc Panel 46H, POC Ionized Calcium (Misc Panel) 4.8, POC Creatinine (Misc Panel) 1.5H, POC Hematocrit (Misc Panel) < 15.0L CBC/BMP Laboratory Tests 08/15/19 21:22 Home Medications Scheduled Aspirin (Aspirin EC) 325 Mg Tabec, 325 MG PO QHS Calcium Carbonate (Calcium Carbonate) 500 Mg Tab, 500 MG PO BID 1600, QHS Carbamide Peroxide (Debrox) 6.5 % Berenice, 5 DROP AU BID FIRST 4 DAYS OF MONTH ONLY Cholecalciferol (Vitamin D3) (Vitamin D3) 1,000 Unit Tablet, 2,000 UNITS PO DAILY Leuprolide Acetate (Lupron Depot) 45 Mg Inj, 45 MG IM ASDIRECTED [id number] Loratadine (Claritin) 10 Mg Cap, 10 MG PO DAILY Lutein (Lutein) 6 Mg Cap, 6 MG PO DAILY Oxybutynin Chloride (Oxybutynin Chloride) 5 Mg Tab, 5 MG PO BID Pantoprazole Sodium (Protonix) 40 Mg Tab, 40 MG PO BID Phenobarbital (Phenobarbital) 64.8 Mg Tab, 64.8 MG PO QAM Phenobarbital (Phenobarbital) 97.2 Mg Tab, 97.2 MG PO QHS Scheduled PRN Acetaminophen (Acetaminophen) 325 Mg Tab, 325 MG PO PRN PRN for PAIN OR SHORTNESS OF BREATH Guaifenesin/Dextromethorphan (Gs Tussin Dm Liquid) 1 Liq Liq, 5 ML PO PRN PRN for COUGH Miscellaneous Medications Multivitamin (Multivitamins) 1 Each Tablet, 1 TAB PO Allergies Coded Allergies: procaine (Verified Adverse Reaction, Intermediate, Passes out, 08/15/19) A-FIB/CHADSVASC A-FIB History Current/History of A-Fib/PAF?: No ANNETTA MEDELLIN MD Aug 16, 2019 00:20
[2019-08-16] MEDS ORDERED: SLF 3 ML SYR IV PRN (03:15)
[2019-08-16] MEDS: ASPIRIN ENTERIC 325 MG TAB PO SCH ×2 (03:32→20:30)
[2019-08-16] MEDS: OYSTER SHELL CALCIUM 500 MG TAB PO SCH ×3 (03:32→20:30)
[2019-08-16] MEDS: oxyBUTYnin 5 MG TAB PO SCH ×3 (03:32→20:30)
[2019-08-16] MEDS: PANTOPRAZOLE 40MG TAB (PROTONIX) PO SCH ×3 (03:32→20:30)
[2019-08-16] MEDS: PHENobarbitaL 30 MG TAB PO SCH ×3 (03:32→20:31)
[2019-08-16] MEDS: CARBAMIDE PEROXIDE 6.5% OTIC SOLN 15ML AU SCH ×3 (03:33→20:31)
[2019-08-16] MEDS: SLF 3 ML SYR IV SCH ×3 (05:38→20:32)
[2019-08-16 09:37] LABS: MEAN CORPUSCULAR HEMOGLOBIN 32.9 pg (27.0-33.0); MEAN CORPUSCULAR HGB CONC 33.3 g/dl (32.0-36.5); MEAN CORPUSCULAR VOLUME 98.6 fl (80.0-96.0); WHITE BLOOD COUNT 8.4 10^3/uL (4.0-10.0)
[2019-08-16 09:41] LABS: HEMATOCRIT 20.7 % (42.0-52.0); HEMOGLOBIN 6.9 g/dl (13.5-17.5); PLATELET COUNT, AUTOMATED 28 10^3/uL (150-450)
[2019-08-16] MEDS: VITAMIN D 1,000 INTERNATIONAL UNITS TABLET PO SCH (09:41)
[2019-08-16] MEDS: LORATADINE 10 MG TAB PO SCH (09:42)
[2019-08-16 10:18] LABS: ALBUMIN 3.3 GM/DL (3.2-5.2); BILIRUBIN,TOTAL 0.9 MG/DL (0.2-1.0); CALCIUM LEVEL 7.9 MG/DL (8.8-10.2); CREATININE FOR GFR 1.33 MG/DL (0.70-1.30); GLOMERULAR FILTRATION RATE 56.9 (>49); MAGNESIUM LEVEL 2.2 MG/DL (1.8-2.4); POTASSIUM SERUM 4.1 MEQ/L (3.5-5.1)
--- NOTE | 2019-08-16 15:44 | IPNPDOC ---
Text Note Date of Service The patient was seen on 08/16/19. NOTE Subjective: Patient follows simple commands, he denies any pain. Objective: VITAL SIGNS: Please see below. GENERAL: NAD, pale HEENT: NCAT, anicteric sclera, CIARA NECK: supple, no JVD CARDIOVASCULAR EXAMINATION: NS1S2, regular rate/rhythm RESPIRATORY EXAMINATION: CTA b/l, no wheezes/rales/rhonchi ABDOMINAL EXAMINATION: positive bowel sounds x 4, NT EXTREMITIES: no cyanosis, clubbing, edema SKIN: warm, no rashes. NEUROLOGICAL EXAMINATION: no motor/sensory deficits Assessment and plan: Patient is 69 years old male with past mental history of of mental disability, CVA, non-Hodgkin's lymphoma, prostate cancer and seizure disorder presents from [facility] for dizziness. Patient was found to have profound anemia and thrombocytopenia without obvious source of bleeding Pancytopenia peripheral smear showed severe macrocytic anemia, mild poikilocytosis and increased rouleaux formation. Relative lymphocytosis with presence of small atypical lymphocytes Reticulocytes decreased Patient received blood transfusion Appreciate/agree with water analyst consult Patient received 5 units of RBC and 2 units of platelets Most likely patient will need bone marrow biopsy H&H Seizure disorder. 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 Mental disability. Resides at [facility] Aggressive non-Hodgkin's lymphoma diagnosed in 2013 status post R-CHOP times six. Follow-up with oncologist Carlita LATIF, I+O Carlita LATIF I+O Laboratory Tests 08/15/19 21:22 08/16/19 09:18 Vital Signs Date Time Temp Pulse Resp B/P (MAP) Pulse Ox O2 Delivery O2 Flow Rate FiO2 08/16/19 14:33 97.2 64 18 133/72 97 Room Air 08/16/19 12:00 2.0 I&O- Last 24 Hours up to 6 AM 08/16/19 06:00 Intake Total 3165 ml Output Total 300 ml Balance 2865 ml YAMILKA NIEVES DO Aug 16, 2019 15:44
--- NOTE | 2019-08-16 20:50 | CR.PDOC ---
General Date of Consultation: Aug 16, 2019 Referring Provider: YAMILKA NIEVES DO Attending Physician: SUZANNE SALDANA Consultation REASON FOR CONSULTATION/CHIEF COMPLAINT:. Pancytopenia with increasing weakness. HISTORY OF PRESENT ILLNESS: . I had the pleasure of seeing Mr. Alvin Lemus in consultation for pancytopenia. As you know, Mr. Lemus is a 69-year-old white gentleman who has history of non- Hodgkin lymphoma in the past and also has a history of prostate cancer. He has history of mental disability due to CVA and was diagnosed to have non-Hodgkin lymphoma. Details of non-Hodgkin lymphoma and its treatment is not available as patient is mentally disabled and is unable to provide any relevant history. Patient has been feeling dizziness and more confused for 48 hours prior to his hospital admission. He has been feeling weak, fatigued out and tired. He denies any hematochezia or melena. He does not have nausea, vomiting, or abdominal pain. He has no nose or gum bleed. His urination is normal, without any gross hematuria. He denies chest pain or palpitation. No headache or dizziness and has no urinary symptoms. In the emergency room he was found to have hemoglobin of 3.3 with hematocrit of 10 and platelet count of 29. He was transfused with 4 units of packed red blood cells and a single unit of pheresed platelets. After transfusion patient hemoglobin went up to 6.9 with hematocrit of 20.7 and platelet count of 28. His differential count is showing neutrophil of 15% and lymphocytes of 83%, monocytes 2%. Peripheral blood smear is showing pancytopenia with macrocytosis and increased rouleaux formation with relative lymphocytosis. Small atypical lymphocytes were also found. HOME MEDICATIONS: Please see below. PAST MEDICAL HISTORY: 1. Non-Hodgkin lymphoma 2. Prostate cancer. 3. CVA and mental disability. 4. Seizure disorder. PAST SURGICAL HISTORY: 1. Pacemaker placement 2. Date extraction FAMILY HISTORY: Unable to be obtained SOCIAL HISTORY: Patient lives in a long-term and is mentally compromised. Other relevant social factors: REVIEW OF SYSTEMS: Detailed review of systems could not be obtained because of mental compromise. Patient is comfortable and does not complain currently PHYSICAL EXAMINATION: VITAL SIGNS: Please see below. GENERAL APPEARANCE: [. Looking gentleman looking stable in no acute distress. His bili looking, but no jaundice or cyanosis.]. HEENT: [Is edentulous. Normocephalic]. Lymph nodes are not palpable. RESPIRATORY: [Clear to auscultation]. CARDIOVASCULAR: [. Normal heart sounds]. ABDOMEN: [, Soft and obese. No hepatosplenomegaly.]. EXTREMITIES: [Minimal pedal edema]. NEUROLOGICAL: [Mentally compromised, but moving all 4 limbs]. PSYCHIATRIC: [In no acute distress, or depression or anxiety.]. LABORATORY DATA: Please see below. ASSESSMENT/PLAN: [Pancytopenia with severe anemia, status post 4 units of packed red cells and 1 unit of pheresis platelets. Patient had a history of non-Hodgkin lymphoma. Peripheral blood is showing mostly lymphocytosis. It is highly likely that patient has low-grade non-Hodgkin lymphoma, although details are not available. Following intervention is suggested. #1. Bone marrow aspiration and biopsy can be done at interventional radiology under sono-guided biopsy from the posterior daily crest. Bone marrow aspiration medicine for flow cytometry, morphology and iron staining. #2. CT scan of the chest, abdomen and pelvis to see the condition of the intermittent lymph nodes. #3. Continue to watch CBC with blood counts and transfuse red blood cells for hemoglobin/hematocrit less than 7/21. Patient platelets may be kept around 30 and may not require platelet infusion unless a procedure is required, then 1 unit of single donor platelets may be infused. Depending on the cause of pancytopenia. We'll proceed accordingly. I would like to thank Dr. Corley for this consult for this pleasant patient of pancytopenia. Vital Signs/I&O Vital Signs Date Time Temp Pulse Resp B/P (MAP) Pulse Ox O2 Delivery O2 Flow Rate FiO2 08/16/19 18:54 96.9 66 18 121/72 96 Room Air 08/16/19 12:00 2.0 I&O- Last 24 Hours up to 6 AM 08/16/19 06:00 Intake Total 3165 ml Output Total 300 ml Balance 2865 ml Laboratory Data Labs 24H Laboratory Tests 2 08/15/19 21:22: Neutrophils (%) (Auto) , Reticulocyte # (auto) 7.9L, Nucleated Red Blood Cells % (auto) 0.0, Neutrophils 15L, Lymphocytes (Manual) 83H, Monocytes (Manual) 2, Anisocytosis 1+, Macrocytosis 2+, Platelet Estimate DECREASED, Differential Slide Review Report, Immature Platelet Fraction 5.1, Peripheral Blood Smear Path Consult PERIPHERAL SMEAR, Percent Reticulocyte Count 0.9, Reticulocyte Hemoglobin Equivalent 44.3H, Prothrombin Time 15.7H, Prothromb Time International Ratio 1.28, Activated Partial Thromboplast Time 29.2, Anion Gap 10, Glomerular Filtration Rate 51.9, Calcium Level 8.2L, Iron Level 252H, Total Iron Binding Capacity 266, Transferrin % Saturation 94.7H, Ferritin 321, Total Bilirubin 0.4, Direct Bilirubin 0.2, Aspartate Amino Transf (AST/SGOT) 22, Alanine Aminotransferase (ALT/SGPT) 24, Alkaline Phosphatase 173H, Lactate Dehydrogenase 319H, Total Protein 6.3L, Albumin 3.5, Albumin/Globulin Ratio 1.3, Lipase 112 08/15/19 21:28: POC Glucose (Misc Panel) 166H, POC Sodium (Misc Panel) 140, POC Potassium (Misc Panel) 4.3, POC Chloride (Misc Panel) 105, POC Total CO2 (Misc Panel) 20.0L, POC Blood Urea Nitrogen (Misc Panel 46H, POC Ionized Calcium (Misc Panel) 4.8, POC Creatinine (Misc Panel) 1.5H, POC Hematocrit (Misc Panel) < 15.0L 08/16/19 09:18: Nucleated Red Blood Cells % (auto) 0.0, Anion Gap 8, Glomerular Filtration Rate 56.9, Calcium Level 7.9L, Total Bilirubin 0.9#, Aspartate Amino Transf (AST/SGO T) 20, Alanine Aminotransferase (ALT/SGPT) 20, Alkaline Phosphatase 162H, Total Protein 6.0L, Albumin 3.3, Albumin/Globulin Ratio 1.2, Magnesium Level 2.2 08/16/19 11:34: Urine Color YELLOW, Urine Appearance CLOUDYH, Urine pH 8.0, Urine Specific [place] 1.019, Urine Protein 1+H, Urine Glucose (UA) NEGATIVE, Urine Ketones NEGATIVE, Urine Blood NEGATIVE, Urine Nitrite NEGATIVE, Urine Bilirubin NEGATIVE, Urine Urobilinogen 0.2, Urine Leukocyte Esterase 3+H, Urine WBC (Auto) TNTCH, Urine RBC (Auto) 13H, Urine Hyaline Casts (Auto) 0, Urine Bacteria (Auto) 2+H, Urine Squamous Epithelial Cells 0, Urine Amorphous Sediment SMALLH, Urine Sperm (Auto) CBC/BMP Laboratory Tests 08/15/19 21:22 08/16/19 09:18 Microbiology Microbiology 08/16/19 Urine Culture, Received Pending Allergies Coded Allergies: procaine (Verified Adverse Reaction, Intermediate, Passes out, 08/15/19) Home Medications Scheduled Aspirin (Aspirin EC) 325 Mg Tabec, 325 MG PO QHS, (Reported) Calcium Carbonate (Calcium Carbonate) 500 Mg Tab, 500 MG PO BID, (Reported) 1600, QHS Carbamide Peroxide (Debrox) 6.5 % Berenice, 5 DROP AU BID, (Reported) FIRST 4 DAYS OF MONTH ONLY Cholecalciferol (Vitamin D3) (Vitamin D3) 1,000 Unit Tablet, 2,000 UNITS PO DAILY, (Reported) Leuprolide Acetate (Lupron Depot) 45 Mg Inj, 45 MG IM ASDIRECTED, (Reported) [id number] Loratadine (Claritin) 10 Mg Cap, 10 MG PO DAILY, (Reported) Lutein (Lutein) 6 Mg Cap, 6 MG PO DAILY, (Reported) Oxybutynin Chloride (Oxybutynin Chloride) 5 Mg Tab, 5 MG PO BID, (Reported) Pantoprazole Sodium (Protonix) 40 Mg Tab, 40 MG PO BID, (Reported) Phenobarbital (Phenobarbital) 64.8 Mg Tab, 64.8 MG PO QAM, (Reported) Phenobarbital (Phenobarbital) 97.2 Mg Tab, 97.2 MG PO QHS, (Reported) Scheduled PRN Acetaminophen (Acetaminophen) 325 Mg Tab, 325 MG PO PRN PRN for PAIN OR SHORTNESS OF BREATH, (Reported) Guaifenesin/Dextromethorphan (Gs Tussin Dm Liquid) 1 Liq Liq, 5 ML PO PRN PRN for COUGH, (Reported) Miscellaneous Medications Multivitamin (Multivitamins) 1 Each Tablet, 1 TAB PO, (Reported) JULIANNE CARVALHO MD Aug 16, 2019 20:50
[2019-08-17] VITALS: BP 123/72
[2019-08-17 04:00] VITALS: BP 147/70
[2019-08-17] MEDS: SLF 3 ML SYR IV SCH ×3 (06:23→22:39)
[2019-08-17 08:00] VITALS: BP 134/61
[2019-08-17 08:08] LABS: BASO # 0.1 10^3/uL (0.0-0.2); BASO % 0.9 % (0.0-1.0); EOS # 0.1 10^3/uL (0.0-0.5); EOS % 1.3 % (0.0-3.0); HEMATOCRIT 23.1 % (42.0-52.0); HEMOGLOBIN 8.1 g/dl (13.5-17.5); LYMPH # 3.9 10^3/uL (1.5-5.0); LYMPH % 70.4 % (24.0-44.0); MEAN CORPUSCULAR HEMOGLOBIN 33.8 pg (27.0-33.0); MEAN CORPUSCULAR HGB CONC 35.1 g/dl (32.0-36.5); MEAN CORPUSCULAR VOLUME 96.3 fl (80.0-96.0); MONO # 0.6 10^3/uL (0.0-0.8); NEUTROPHILS % 15.9 % (36.0-66.0); WHITE BLOOD COUNT 5.5 10^3/uL (4.0-10.0)
[2019-08-17 08:09] LABS: NEUTROPHILS # 0.9 10^3/uL (1.5-8.5); PLATELET COUNT, AUTOMATED 36 10^3/uL (150-450)
[2019-08-17 08:30] LABS: BLOOD UREA NITROGEN 39 MG/DL (7-18); CALCIUM LEVEL 7.7 MG/DL (8.8-10.2); CARBON DIOXIDE LEVEL 24 MEQ/L (21-32); CHLORIDE LEVEL 113 MEQ/L (98-107); CREATININE FOR GFR 1.16 MG/DL (0.70-1.30); GLOMERULAR FILTRATION RATE > 60.0 (>49); GLUCOSE, FASTING 114 MG/DL (70-100); POTASSIUM SERUM 4.1 MEQ/L (3.5-5.1); SODIUM LEVEL 143 MEQ/L (136-145)
[2019-08-17] MEDS: VITAMIN D 1,000 INTERNATIONAL UNITS TABLET PO SCH (08:43)
[2019-08-17] MEDS: oxyBUTYnin 5 MG TAB PO SCH ×2 (08:43→20:26)
[2019-08-17] MEDS: PANTOPRAZOLE 40MG TAB (PROTONIX) PO SCH ×2 (08:44→20:26)
[2019-08-17] MEDS: CARBAMIDE PEROXIDE 6.5% OTIC SOLN 15ML AU SCH ×3 (08:44→20:26)
[2019-08-17] MEDS: LORATADINE 10 MG TAB PO SCH (08:44)
[2019-08-17] MEDS: PHENobarbitaL 30 MG TAB PO SCH ×2 (08:44→20:25)
--- NOTE | 2019-08-17 10:42 | IPNPDOC ---
Text Note Date of Service The patient was seen on 08/17/19. NOTE Subjective: Patient follows simple commands, he denies any pain. Objective: VITAL SIGNS: Please see below. GENERAL: NAD, pale HEENT: NCAT, anicteric sclera, CIARA NECK: supple, no JVD CARDIOVASCULAR EXAMINATION: NS1S2, regular rate/rhythm RESPIRATORY EXAMINATION: CTA b/l, no wheezes/rales/rhonchi ABDOMINAL EXAMINATION: positive bowel sounds x 4, NT EXTREMITIES: no cyanosis, clubbing, edema SKIN: warm, no rashes. NEUROLOGICAL EXAMINATION: no motor/sensory deficits Assessment and plan: Patient is 69 years old male with past medical history of of mental disability, CVA, non-Hodgkin's lymphoma, prostate cancer and seizure disorder presents from [facility] for dizziness. Patient was found to have profound anemia and thrombocytopenia without obvious source of bleeding Pancytopenia Most likely secondary to recurrent lymphoma peripheral smear showed severe macrocytic anemia, mild poikilocytosis and increased rouleaux formation. Relative lymphocytosis with presence of small atypical lymphocytes Reticulocytes decreased Fourth Mate recommended bone marrow biopsy will be done on Tuesday and CT scan of the chest, abdomen and pelvis to see the condition of the intermittent lymph nodes. Patient received 5 units of RBC and 2 units of platelets. Hemoglobin stable H&H Seizure disorder. Continue phenobarbital Adenocarcinoma of the prostate stage II A, [id number], currently on total androgen blockade with leuprolide injections. Mental disability. Resides at [facility] Aggressive non-Hodgkin's lymphoma diagnosed in 2013 status post R-CHOP times six. Follow-up with oncologist Carlita LATIF, I+O Carlita LATIF, I+O Laboratory Tests 08/17/19 07:12 Vital Signs Date Time Temp Pulse Resp B/P (MAP) Pulse Ox O2 Delivery O2 Flow Rate FiO2 08/17/19 08:00 97.3 70 20 134/61 (85) 95 Room Air 08/16/19 12:00 2.0 I&O- Last 24 Hours up to 6 AM 08/17/19 06:00 Intake Total 2295 ml Output Total 1095 ml Balance 1200 ml YAMILKA NIEVES DO Aug 17, 2019 10:42
[2019-08-17] MEDS ORDERED: ISOVUE-370 76% 100ML VIAL As Ordered ONE (10:54)
[2019-08-17 12:07] LABS: HEMATOCRIT 24.6 % (42.0-52.0); HEMOGLOBIN 8.4 g/dl (13.5-17.5)
--- NOTE | 2019-08-17 12:16 | REP ---
REASON FOR EXAM: Followup. The latest prior for comparison is 03/31/2016. CONTRAST: 100 mL Isovue 370. Mediastinal adenopathy has developed since the last exam. There is no evidence of hilar adenopathy. There are small bilateral pleural effusions representing a change from the prior exam. There is a hiatal hernia status quo. There is no significant change in the appearance of the osseous structures. Evaluation of the lung vincent shows a few scattered bibasilar ground-glass opacities likely subsegmental atelectatic changes. No definite new abnormal nodules, masses, or other opacities have developed. IMPRESSION: Mediastinal adenopathy has developed since the last exam. Small bilateral pleural effusions have developed since the last exam. Other findings as described above. Electronically Signed by Tato Gonzáles DO 08/17/2019 01:46 P
--- NOTE | 2019-08-17 12:43 | REP ---
REASON: Assess for lymphadenopathy. The latest prior for comparison is 03/31/2016. CONTRAST: 100 mL Isovue 370. There is splenomegaly. This has developed since the last exam. There is no significant change in the appearance of the liver. The pancreas, adrenal glands, and kidneys are unchanged and again seen to be within normal limits. There is large hiatal hernia status quo. There is retrocrural and celiac axis adenopathy with round enhancing lymph nodes in the gastrohepatic ligament. There is para-aortic adenopathy. There is pelvic sidewall adenopathy. No free fluid or free air is seen in the abdomen or pelvis. There is abnormal circumferential thickening of the urinary bladder wall with mild perivesicular fatty infiltration. There is a bowel-containing right inguinal hernia. There is a small unchanged collection of fluid in the left inguinal region. There is no significant change in the mesentery-containing umbilical hernia. There is mild katya-duodenal fatty infiltration. IMPRESSION: 1. There is adenopathy and splenomegaly which has developed since the last exam. 2. Possible duodenitis. 3. Abnormal urinary bladder wall thickening with perivesicular fatty infiltration possibly secondary to acute cystitis upon chronic change. Consider urological consultation. 4. There is a bowel containing right inguinal hernia without evidence of a bowel obstruction or bowel wall edema. 5. Small unchanged fluid collection in the left anterior hemipelvis near the inguinal region. 6. Large hiatal hernia status quo. 7. Other findings as described above. Electronically Signed by Tato Gonzáles DO 08/17/2019 01:46 P
[2019-08-17] MEDS: OYSTER SHELL CALCIUM 500 MG TAB PO SCH ×2 (15:31→20:26)
[2019-08-17 16:00] VITALS: BP 149/78
[2019-08-17 16:06] LABS: VITAMIN B12 LEVEL 428 PG/ML
[2019-08-17 16:09] LABS: FOLATE > 24.0 NG/ML
[2019-08-17 18:14] LABS: HEMATOCRIT 25.2 % (42.0-52.0); HEMOGLOBIN 8.4 g/dl (13.5-17.5)
[2019-08-17 20:00] VITALS: BP 153/82
[2019-08-17] MEDS: ASPIRIN ENTERIC 325 MG TAB PO SCH (20:26)
[2019-08-18 00:34] LABS: HEMATOCRIT 23.7 % (42.0-52.0); HEMOGLOBIN 8.1 g/dl (13.5-17.5)
[2019-08-18 04:00] VITALS: BP 163/83
[2019-08-18 06:23] LABS: HEMATOCRIT 23.2 % (42.0-52.0); HEMOGLOBIN 7.8 g/dl (13.5-17.5); MEAN CORPUSCULAR HEMOGLOBIN 32.8 pg (27.0-33.0); MEAN CORPUSCULAR HGB CONC 33.6 g/dl (32.0-36.5); MEAN CORPUSCULAR VOLUME 97.5 fl (80.0-96.0); RED BLOOD COUNT 2.38 10^6/uL (4.30-6.10); WHITE BLOOD COUNT 4.8 10^3/uL (4.0-10.0)
[2019-08-18 06:24] LABS: PLATELET COUNT, AUTOMATED 34 10^3/uL (150-450)
[2019-08-18 06:43] LABS: BLOOD UREA NITROGEN 34 MG/DL (7-18); CALCIUM LEVEL 7.8 MG/DL (8.8-10.2); CARBON DIOXIDE LEVEL 23 MEQ/L (21-32); CHLORIDE LEVEL 113 MEQ/L (98-107); GLOMERULAR FILTRATION RATE > 60.0 (>49); GLUCOSE, FASTING 118 MG/DL (70-100); POTASSIUM SERUM 4.1 MEQ/L (3.5-5.1); SODIUM LEVEL 144 MEQ/L (136-145)
[2019-08-18] MEDS: SLF 3 ML SYR IV SCH ×3 (06:43→22:00)
[2019-08-18] MEDS: oxyBUTYnin 5 MG TAB PO SCH ×2 (08:55→20:07)
[2019-08-18] MEDS: LevoFLOXacin 500 MG TABLET PO SCH (08:55)
[2019-08-18] MEDS: PHENobarbitaL 30 MG TAB PO SCH ×2 (08:55→20:07)
[2019-08-18] MEDS: PANTOPRAZOLE 40MG TAB (PROTONIX) PO SCH ×2 (08:55→20:07)
[2019-08-18] MEDS: LORATADINE 10 MG TAB PO SCH (08:55)
[2019-08-18] MEDS: VITAMIN D 1,000 INTERNATIONAL UNITS TABLET PO SCH (08:55)
[2019-08-18] MEDS: CARBAMIDE PEROXIDE 6.5% OTIC SOLN 15ML AU SCH ×2 (08:56→20:07)
--- NOTE | 2019-08-18 12:00 | IPNPDOC ---
Text Note Date of Service The patient was seen on 08/18/19. NOTE Subjective: Patient follows simple commands, he denies any pain. No any acute events overnight Objective: VITAL SIGNS: Please see below. GENERAL: NAD, pale HEENT: NCAT, anicteric sclera, CIARA NECK: supple, no JVD CARDIOVASCULAR EXAMINATION: NS1S2, regular rate/rhythm RESPIRATORY EXAMINATION: CTA b/l, no wheezes/rales/rhonchi ABDOMINAL EXAMINATION: positive bowel sounds x 4, NT EXTREMITIES: no cyanosis, clubbing, edema SKIN: warm, no rashes. NEUROLOGICAL EXAMINATION: no motor/sensory deficits Assessment and plan: Patient is 69 years old male with past medical history of of mental disability, CVA, non-Hodgkin's lymphoma, prostate cancer and seizure disorder presents from [facility] for dizziness. Patient was found to have profound anemia and thrombocytopenia without obvious source of bleeding Pancytopenia Most likely secondary to recurrent lymphoma peripheral smear showed severe macrocytic anemia, mild poikilocytosis and increased rouleaux formation. Relative lymphocytosis with presence of small atypical lymphocytes Reticulocytes decreased Manager E Commerce recommended bone marrow biopsy will be done on Tuesday and CT scan of the chest, abdomen and pelvis to see the condition of the intermittent lymph nodes. Patient received 5 units of RBC and 2 units of platelets. Hemoglobin stable H&H Seizure disorder. 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 Mental disability. Resides at [facility] Aggressive non-Hodgkin's lymphoma diagnosed in 2013 status post R-CHOP times six. Follow-up with oncologist Carlita LATIF, I+O Carlita LATIF I+O Laboratory Tests 08/17/19 18:04 08/18/19 00:00 08/18/19 06:00 Vital Signs Date Time Temp Pulse Resp B/P (MAP) Pulse Ox O2 Delivery O2 Flow Rate FiO2 08/18/19 04:00 97.8 70 20 163/83 (109) 96 Room Air 08/16/19 12:00 2.0 I&O- Last 24 Hours up to 6 AM 08/18/19 06:00 Intake Total 1080 ml Output Total 2225 ml Balance -1145 ml YAMILKA NIEVES DO Aug 18, 2019 12:00
[2019-08-18 12:17] LABS: HEMATOCRIT 24.8 % (42.0-52.0); HEMOGLOBIN 8.2 g/dl (13.5-17.5)
[2019-08-18 16:00] VITALS: BP 146/82
[2019-08-18] MEDS: OYSTER SHELL CALCIUM 500 MG TAB PO SCH ×2 (16:40→20:07)
[2019-08-18 18:16] LABS: HEMATOCRIT 24.3 % (42.0-52.0); HEMOGLOBIN 8.2 g/dl (13.5-17.5)
[2019-08-18] MEDS: ASPIRIN ENTERIC 325 MG TAB PO SCH (20:07)
[2019-08-19] VITALS (10 sets, daily range): BP systolic 122–142; BP diastolic 56–86
[2019-08-19 00:38] LABS: HEMATOCRIT 23.8 % (42.0-52.0); HEMOGLOBIN 7.9 g/dl (13.5-17.5)
[2019-08-19 06:04] LABS: HEMOGLOBIN 8.1 g/dl (13.5-17.5); MEAN CORPUSCULAR HEMOGLOBIN 33.2 pg (27.0-33.0); MEAN CORPUSCULAR HGB CONC 33.8 g/dl (32.0-36.5); MEAN CORPUSCULAR VOLUME 98.4 fl (80.0-96.0); RED BLOOD COUNT 2.44 10^6/uL (4.30-6.10); WHITE BLOOD COUNT 4.7 10^3/uL (4.0-10.0)
[2019-08-19] MEDS: LevoFLOXacin 500 MG TABLET PO SCH (06:14)
[2019-08-19] MEDS: SLF 3 ML SYR IV SCH ×3 (06:15→22:22)
[2019-08-19 06:16] LABS: PLATELET COUNT, AUTOMATED 29 10^3/uL (150-450)
[2019-08-19 06:22] LABS: BLOOD UREA NITROGEN 27 MG/DL (7-18); CALCIUM LEVEL 8.1 MG/DL (8.8-10.2); CARBON DIOXIDE LEVEL 24 MEQ/L (21-32); CHLORIDE LEVEL 109 MEQ/L (98-107); CREATININE FOR GFR 0.97 MG/DL (0.70-1.30); GLOMERULAR FILTRATION RATE > 60.0 (>49); GLUCOSE, FASTING 104 MG/DL (70-100); MAGNESIUM LEVEL 1.9 MG/DL (1.8-2.4); POTASSIUM SERUM 4.1 MEQ/L (3.5-5.1); SODIUM LEVEL 141 MEQ/L (136-145)
[2019-08-19] MEDS: CARBAMIDE PEROXIDE 6.5% OTIC SOLN 15ML AU SCH (09:00)
[2019-08-19] MEDS: PHENobarbitaL 30 MG TAB PO SCH ×2 (09:38→22:22)
[2019-08-19] MEDS: VITAMIN D 1,000 INTERNATIONAL UNITS TABLET PO SCH (09:38)
[2019-08-19] MEDS: PANTOPRAZOLE 40MG TAB (PROTONIX) PO SCH ×2 (09:39→22:22)
[2019-08-19] MEDS: oxyBUTYnin 5 MG TAB PO SCH ×2 (09:39→22:22)
[2019-08-19] MEDS: LORATADINE 10 MG TAB PO SCH (09:39)
--- NOTE | 2019-08-19 13:56 | IPNPDOC ---
Text Note Date of Service The patient was seen on 08/19/19. NOTE Subjective: No any acute events overnight, patient denied fever, chills, nausea, diarrhea or dysuria Objective: VITAL SIGNS: Please see below. GENERAL: NAD, pale HEENT: NCAT, anicteric sclera, CIARA NECK: supple, no JVD CARDIOVASCULAR EXAMINATION: NS1S2, regular rate/rhythm RESPIRATORY EXAMINATION: CTA b/l, no wheezes/rales/rhonchi ABDOMINAL EXAMINATION: positive bowel sounds x 4, NT EXTREMITIES: no cyanosis, clubbing, edema SKIN: warm, no rashes. NEUROLOGICAL EXAMINATION: no motor/sensory deficits Assessment and plan: Patient is 69 years old male with past medical history of of mental disability, CVA, non-Hodgkin's lymphoma, prostate cancer and seizure disorder presents from [facility] for dizziness. Patient was found to have profound anemia and thrombocytopenia without obvious source of bleeding Pancytopenia Most likely secondary to recurrent lymphoma peripheral smear showed severe macrocytic anemia, mild poikilocytosis and increased rouleaux formation. Relative lymphocytosis with presence of small atypical lymphocytes Reticulocytes decreased Net Mvc Developer recommended bone marrow biopsy will be done on Tuesday and CT scan of the chest, abdomen and pelvis to see the condition of the intermittent lymph nodes. Patient received 5 units of RBC and 2 units of platelets. Hemoglobin stable H&H Today platelet count 28 I will give 2 additional units of platelets Seizure disorder. Continue phenobarbital Adenocarcinoma of the prostate stage II A, [id number], currently on total androgen blockade with leuprolide injections. Mental disability. Resides at [facility] Aggressive non-Hodgkin's lymphoma diagnosed in 2013 status post R-CHOP times six. Follow-up with oncologist Carlita LATIF I+O Carlita LATIF I+O Laboratory Tests 08/18/19 18:07 08/18/19 23:58 08/19/19 05:45 Vital Signs Date Time Temp Pulse Resp B/P (MAP) Pulse Ox O2 Delivery O2 Flow Rate FiO2 08/19/19 12:00 97.1 68 17 128/71 (90) 98 Room Air 08/16/19 12:00 2.0 I&O- Last 24 Hours up to 6 AM 08/19/19 06:00 Intake Total 660 ml Output Total 1800 ml Balance -1140 ml YAMILKA NIEVES DO Aug 19, 2019 13:56
[2019-08-19] MEDS: OYSTER SHELL CALCIUM 500 MG TAB PO SCH ×2 (16:00→22:22)
[2019-08-19 21:18] LABS: HEMATOCRIT 24.4 % (42.0-52.0); HEMOGLOBIN 8.1 g/dl (13.5-17.5); MEAN CORPUSCULAR HEMOGLOBIN 32.7 pg (27.0-33.0); MEAN CORPUSCULAR HGB CONC 33.2 g/dl (32.0-36.5); MEAN CORPUSCULAR VOLUME 98.4 fl (80.0-96.0); RED BLOOD COUNT 2.48 10^6/uL (4.30-6.10); WHITE BLOOD COUNT 5.7 10^3/uL (4.0-10.0)
[2019-08-19 21:19] LABS: PLATELET COUNT, AUTOMATED 46 10^3/uL (150-450)
[2019-08-19] MEDS: ASPIRIN ENTERIC 325 MG TAB PO SCH (22:22)
[2019-08-20] VITALS (10 sets, daily range): BP systolic 102–165; BP diastolic 53–92
[2019-08-20 05:22] LABS: HEMATOCRIT 23.1 % (42.0-52.0); HEMOGLOBIN 7.7 g/dl (13.5-17.5); MEAN CORPUSCULAR HEMOGLOBIN 32.8 pg (27.0-33.0); MEAN CORPUSCULAR HGB CONC 33.3 g/dl (32.0-36.5); MEAN CORPUSCULAR VOLUME 98.3 fl (80.0-96.0); RED BLOOD COUNT 2.35 10^6/uL (4.30-6.10); WHITE BLOOD COUNT 4.5 10^3/uL (4.0-10.0)
[2019-08-20 05:26] LABS: PLATELET COUNT, AUTOMATED 42 10^3/uL (150-450)
[2019-08-20 05:41] LABS: BLOOD UREA NITROGEN 26 MG/DL (7-18); CALCIUM LEVEL 8.2 MG/DL (8.8-10.2); CARBON DIOXIDE LEVEL 24 MEQ/L (21-32); CHLORIDE LEVEL 108 MEQ/L (98-107); CREATININE FOR GFR 0.89 MG/DL (0.70-1.30); GLOMERULAR FILTRATION RATE > 60.0 (>49); GLUCOSE, FASTING 105 MG/DL (70-100); MAGNESIUM LEVEL 2.1 MG/DL (1.8-2.4); POTASSIUM SERUM 3.8 MEQ/L (3.5-5.1); SODIUM LEVEL 138 MEQ/L (136-145)
[2019-08-20] MEDS: LevoFLOXacin 500 MG TABLET PO SCH (05:41)
[2019-08-20] MEDS: SLF 3 ML SYR IV SCH ×3 (05:41→20:22)
[2019-08-20] MEDS ORDERED: LIDOCAINE 1% MDV 20ML VIAL As Ordered ONE (07:06)
[2019-08-20] MEDS: PANTOPRAZOLE 40MG TAB (PROTONIX) PO SCH ×2 (09:04→20:21)
[2019-08-20] MEDS: oxyBUTYnin 5 MG TAB PO SCH ×2 (09:04→20:21)
[2019-08-20] MEDS: VITAMIN D 1,000 INTERNATIONAL UNITS TABLET PO SCH (09:04)
[2019-08-20] MEDS: LORATADINE 10 MG TAB PO SCH (09:04)
[2019-08-20] MEDS: PHENobarbitaL 30 MG TAB PO SCH ×2 (09:04→20:22)
--- NOTE | 2019-08-20 13:17 | IPNPDOC ---
Text Note Date of Service The patient was seen on 08/20/19. NOTE Subjective: No any acute events overnight, patient denied fever, chills, nausea, diarrhea or dysuria. Bone marrow biopsy was done today, patient tolerated procedure well Objective: VITAL SIGNS: Please see below. GENERAL: NAD, pale HEENT: NCAT, anicteric sclera, CIARA NECK: supple, no JVD CARDIOVASCULAR EXAMINATION: NS1S2, regular rate/rhythm RESPIRATORY EXAMINATION: CTA b/l, no wheezes/rales/rhonchi ABDOMINAL EXAMINATION: positive bowel sounds x 4, NT EXTREMITIES: no cyanosis, clubbing, edema SKIN: warm, no rashes. NEUROLOGICAL EXAMINATION: no motor/sensory deficits Assessment and plan: Patient is 69 years old male with past medical history of of mental disability, CVA, non-Hodgkin's lymphoma, prostate cancer and seizure disorder presents from [facility] for dizziness. Patient was found to have profound anemia and thrombocytopenia without obvious source of bleeding Pancytopenia Most likely secondary to recurrent lymphoma peripheral smear showed severe macrocytic anemia, mild poikilocytosis and increased rouleaux formation. Relative lymphocytosis with presence of small atypical lymphocytes Reticulocytes decreased Reel Cart Operator recommended bone marrow biopsy which was done on 08/18/[address] scan of the chest, abdomen and pelvis to see the condition of the intermittent lymph nodes. CT abdomen and pelvis showed adenopathy and splenomegaly which has developed since the last exam CT chest showed Mediastinal adenopathy has developed since the last exam. Small bilateral pleural effusions have developed since the last exam. On 08/20/19 hemoglobin 7.6, platelets 46 Patient can be discharge in 24 hours if he hemodynamically stable with close follow-up with oncologist/ political consultant for bone marrow biopsy result UTI UA showed Morganella morganii sensitive to levofloxacin. Continue for [address] showed Abnormal urinary bladder wall thickening with perivesicular fatty infiltration possibly secondary to acute cystitis upon chronic change Seizure disorder. Continue phenobarbital Adenocarcinoma of the prostate stage II A, [id number], currently on total androgen blockade with leuprolide injections. Mental disability. Resides at [facility] Aggressive non-Hodgkin's lymphoma diagnosed in 2013 status post R-CHOP times six. Follow-up with oncologist Carlita LATIF, I+O Carlita LATIF, I+O Laboratory Tests 08/19/19 21:09 08/20/19 05:08 Vital Signs Date Time Temp Pulse Resp B/P (MAP) Pulse Ox O2 Delivery O2 Flow Rate FiO2 08/20/19 12:12 97.4 73 18 110/59 97 Room Air 08/16/19 12:00 2.0 I&O- Last 24 Hours up to 6 AM 08/20/19 05:59 Intake Total 1675 ml Output Total 2500 ml Balance -825 ml YAMILKA NIEVES DO Aug 20, 2019 13:17
[2019-08-20] MEDS: OYSTER SHELL CALCIUM 500 MG TAB PO SCH ×2 (15:44→20:21)
[2019-08-20] MEDS: ASPIRIN ENTERIC 325 MG TAB PO SCH (20:21)
[2019-08-21] VITALS (9 sets, daily range): BP systolic 102–138; BP diastolic 42–74
[2019-08-21 06:15] LABS: HEMATOCRIT 23.2 % (42.0-52.0); HEMOGLOBIN 7.8 g/dl (13.5-17.5); MEAN CORPUSCULAR HEMOGLOBIN 33.1 pg (27.0-33.0); MEAN CORPUSCULAR HGB CONC 33.6 g/dl (32.0-36.5); MEAN CORPUSCULAR VOLUME 98.3 fl (80.0-96.0); PLATELET COUNT, AUTOMATED 45 10^3/uL (150-450); RED BLOOD COUNT 2.36 10^6/uL (4.30-6.10); WHITE BLOOD COUNT 5.1 10^3/uL (4.0-10.0)
[2019-08-21] MEDS: SLF 3 ML SYR IV SCH ×3 (06:26→22:00)
[2019-08-21] MEDS: LevoFLOXacin 500 MG TABLET PO SCH (06:26)
[2019-08-21 06:29] LABS: BLOOD UREA NITROGEN 27 MG/DL (7-18); CALCIUM LEVEL 8.3 MG/DL (8.8-10.2); CARBON DIOXIDE LEVEL 25 MEQ/L (21-32); CHLORIDE LEVEL 108 MEQ/L (98-107); CREATININE FOR GFR 0.95 MG/DL (0.70-1.30); GLOMERULAR FILTRATION RATE > 60.0 (>49); GLUCOSE, FASTING 101 MG/DL (70-100); POTASSIUM SERUM 4.2 MEQ/L (3.5-5.1); SODIUM LEVEL 137 MEQ/L (136-145)
[2019-08-21] MEDS: LORATADINE 10 MG TAB PO SCH (08:24)
[2019-08-21] MEDS: PANTOPRAZOLE 40MG TAB (PROTONIX) PO SCH ×2 (08:24→21:59)
[2019-08-21] MEDS: VITAMIN D 1,000 INTERNATIONAL UNITS TABLET PO SCH (08:24)
[2019-08-21] MEDS: PHENobarbitaL 30 MG TAB PO SCH ×2 (08:24→21:59)
[2019-08-21] MEDS: oxyBUTYnin 5 MG TAB PO SCH ×2 (08:24→21:59)
[2019-08-21] MEDS: OYSTER SHELL CALCIUM 500 MG TAB PO SCH ×2 (16:10→21:59)
--- NOTE | 2019-08-21 20:17 | IPNPDOC ---
Date Seen The patient was seen on 08/21/19. Progress Note SUBJECTIVE: Patient is a [69]-year-old white] [male] with [history of pancytopenia due to bone marrow infiltration with non-Hodgkin lymphoma. Currently, he has no complaint and feels good.] OBJECTIVE PHYSICAL EXAMINATION: VITAL SIGNS: Please see below. GENERAL: [In no acute distress] HEENT: [Normal] CARDIOVASCULAR: [. Normal heart sounds]. RESPIRATORY: [Clear to auscultation]. ABDOMINAL: [, Soft, nontender, no hepatosplenomegaly] EXTREMITIES: [No edema] NEUROLOGICAL: [Mentally compromised, although moving all the limbs] PSYCHOLOGICAL: LABORATORY DATA, IMAGING STUDIES, MICROBIOLOGY: Please see below. Echocardiogram: . DVT prophylaxis ordered?: ASSESSMENT AND PLAN: This is a [69]-year-old white] male] with [history of pancytopenia. Patient bone marrow aspiration and biopsy revealed non-Hodgkin lymphoma. I discussed with the pathologist. Flow cytometry is nonconclusive because there are hardly any bone marrow cells in the bone marrow aspirate. Aspirate was positive for CD10. Most likely to B-cell non-Hodgkin lymphoma. Final pathology will be available tomorrow. Patient is mentally compromised, so the options of treatment will be limited. If patient is found to be CD20 posi tive, we may offer Rituxan weekly 4 with prednisone 100 mg by mouth for 5 days and vincristine 1 mg/m 1 dose to see if helps to improve his blood count. Once we have final diagnoses made by pathologist, we will plan for further treatment.]. PROBLEMS: 1. : . 2. : . 3. : . DISPOSITION: . VS, I&O, 24H, [facility]ly [facility], [facility] Vital Signs/I&O Vital Signs Date Time Temp Pulse Resp B/P (MAP) Pulse Ox O2 Delivery O2 Flow Rate FiO2 08/21/19 19:50 97.5 73 18 134/71 96 Room Air 08/16/19 12:00 2.0 I&O- Last 24 Hours up to 6 AM 08/21/19 06:00 Intake Total 1280 ml Output Total 1700 ml Balance -420 ml Laboratory Data 24H LABS Laboratory Tests 2 08/21/19 05:41: Nucleated Red Blood Cells % (auto) 0.0, Immature Platelet Fraction 4.0, Anion Gap 4L, Glomerular Filtration Rate > 60.0, Calcium Level 8.3L, Magnesium Level 2.0 CBC/BMP Laboratory Tests 08/21/19 05:41 Microbiology Microbiology 08/16/19 Stool Occult Blood (DANICA) - Final, Complete 08/16/19 Urine Culture - Final, Complete Morganella Morganii Ssp JULIANNE Francis MD Aug 21, 2019 20:17
[2019-08-21 21:22] LABS: HEMATOCRIT 28.9 % (42.0-52.0); HEMOGLOBIN 9.8 g/dl (13.5-17.5)
[2019-08-21] MEDS: ASPIRIN ENTERIC 325 MG TAB PO SCH (21:59)
[2019-08-22 06:00] VITALS: BP 121/64
[2019-08-22] MEDS: SLF 3 ML SYR IV SCH (06:00)
[2019-08-22] MEDS: LevoFLOXacin 500 MG TABLET PO SCH (06:08)
[2019-08-22 06:15] LABS: HEMATOCRIT 29.3 % (42.0-52.0); HEMOGLOBIN 9.8 g/dl (13.5-17.5); MEAN CORPUSCULAR HEMOGLOBIN 31.6 pg (27.0-33.0); MEAN CORPUSCULAR HGB CONC 33.4 g/dl (32.0-36.5); MEAN CORPUSCULAR VOLUME 94.5 fl (80.0-96.0)
[2019-08-22 06:40] LABS: BLOOD UREA NITROGEN 29 MG/DL (7-18); CALCIUM LEVEL 8.7 MG/DL (8.8-10.2); CARBON DIOXIDE LEVEL 24 MEQ/L (21-32); CHLORIDE LEVEL 109 MEQ/L (98-107); CREATININE FOR GFR 0.99 MG/DL (0.70-1.30); GLOMERULAR FILTRATION RATE > 60.0 (>49); GLUCOSE, FASTING 107 MG/DL (70-100); MAGNESIUM LEVEL 2.1 MG/DL (1.8-2.4); POTASSIUM SERUM 4.3 MEQ/L (3.5-5.1); SODIUM LEVEL 141 MEQ/L (136-145)
[2019-08-22 06:50] LABS: PLATELET COUNT, AUTOMATED 35 10^3/uL (150-450)
--- NOTE | 2019-08-22 06:53 | IPN ---
DATE: 08/21/2019 Patient remains anemic. Awaiting the pathology report from the bone marrow biopsy. Hemoglobin today is 7.8. Denies bright red blood per rectum, melena, or black tarry stools. No fever or chills. No dysuria, urgency, frequency. No dizziness or lightheadedness. Temperature 97.4, pulse 73, respiratory rate 18, blood pressure 122/59, 95% on room air. Generally: Awake, alert, oriented to himself. Answers simple questions. Follows commands. Anicteric sclerae. No pallor or icterus. No jaundice. Neck: Supple. Full range of motion. No cervical lymphadenopathy or jugular venous distension. Heart: S1, S2, sinus rhythm. Abdomen: Soft, nontender, and nondistended. Positive bowel sounds times four quadrants. Lungs: Clear to auscultation. No wheezing, rales, or rhonchi. Extremities: No cyanosis, clubbing, or edema. LABORATORY DATA: Has been reviewed. ASSESSMENT AND PLAN: 69-year-old with mental disability, who lives at [facility] ([facility]), CVA, non-Hodgkin lymphoma, prostate cancer, and seizure disorder, admitted for dizziness, was found to have symptomatic anemia, hemoglobin of 3. CURRENT ISSUES: 1. Pancytopenia requiring blood transfusions due to recurrent lymphoma. Smear shows rouleaux formation. Awaiting pathology from the bone marrow biopsy. CT chest, abdomen, and pelvis showed mediastinal lymphadenopathy, splenomegaly. Oncologist has been consulted and can followup as outpatient for treatment for patient's lymphoma. 2. Morganella morganii urinary tract infection (UTI). Currently on Levaquin, to continue 5 days. Acute cystitis. 3. Seizure disorder. On phenobarbital. 4. Mental disability. Lives at [facility]. Patient's sister's phone number is [phone]. Mr. Mac is [phone]. 5. Aggressive non-Hodgkin lymphoma diagnosed 2013, status post R-CHOP times six. Outpatient followup with oncologist. 6. Adenocarcinoma of the prostate, stage IIA, [id number]. On androgen blockade with leuprolide injections. DISPOSITION: Discharge tomorrow after blood transfusion today. MTDD
[2019-08-22] MEDS: LORATADINE 10 MG TAB PO SCH (08:49)
[2019-08-22] MEDS: oxyBUTYnin 5 MG TAB PO SCH (08:49)
[2019-08-22] MEDS: VITAMIN D 1,000 INTERNATIONAL UNITS TABLET PO SCH (08:49)
[2019-08-22] MEDS: PANTOPRAZOLE 40MG TAB (PROTONIX) PO SCH (08:49)
[2019-08-22] MEDS: PHENobarbitaL 30 MG TAB PO SCH (08:49)
[2019-08-22] MEDS ORDERED: LEVA1TAB2 PO (09:07)
[2019-08-22 10:00] VITALS: BP 134/77
[2019-08-22 13:20] LABS: HEPATITIS B SURFACE ANTIGEN NEGATIVE (NEGATIVE)
--- NOTE | 2019-08-22 13:27 | IPNPDOC ---
Date Seen The patient was seen on 08/22/19. Progress Note code status: DO NOT RESUSCITATE/DO NOT INTUBATE MOLST FORM SIGNED AND WITNESSED discussed at length with pt's sister MARY, HEALTH CARE PROXY, that patient can still be treated with chemo for FOLLICULAR LYMPHOMA. According to pt's wishes and HCP, should the patient's heart stop, or he stops breathing, he DOES NOT WANT CPR, INTUBATION, AND MECHANICAL VENTILATION. VS, I&O, 24H, Fishbone Vital Signs/I&O Vital Signs Date Time Temp Pulse Resp B/P (MAP) Pulse Ox O2 Delivery O2 Flow Rate FiO2 08/22/19 10:00 08/16/19 12:00 2.0 I&O- Last 24 Hours up to 6 AM 08/22/19 06:00 Intake Total 2100 ml Output Total 1275 ml Balance 825 ml Laboratory Data 24H LABS Laboratory Tests 2 08/22/19 05:40: Nucleated Red Blood Cells % (auto) 0.0, Anion Gap 8, Glomerular Filtration Rate > 60.0, Calcium Level 8.7L, Magnesium Level 2.1, Hepatitis B Surface Antigen NEGATIVE CBC/BMP Laboratory Tests 08/21/19 21:11 08/22/19 05:40 Microbiology Microbiology 08/16/19 Stool Occult Blood (DANICA) - Final, Complete 08/16/19 Urine Culture - Final, Complete Morganella Morganii Ssp SILVIANO Worley MD Aug 22, 2019 13:27
--- NOTE | 2019-08-24 16:26 | DSES ---
DATE OF ADMISSION: 08/15/2019 DATE OF DISCHARGE: 08/22/2019 AUTOMOTIVE STARTER REPAIRER: Dr. Shabazz, medical oncologist PRIMARY DISCHARGE DIAGNOSES: 1. B-cell non-Hodgkin lymphoma. 2. Follicular lymphoma. 3. Anemia secondary to bone marrow infiltration with recurrent non-Hodgkin B- cell lymphoma, follicular lymphoma. 4. Thrombocytopenia secondary to bone marrow infiltration by B-cell non-Hodgkin lymphoma. 5. Symptomatic anemia, requiring 6 units of red blood cells transfusions, four platelet phoresis. 6. Urinary tract infection with Morganella morganii. 7. Seizure disorder. 8. Adenocarcinoma of the prostate, stage IIA, [id number]. 9. Mental retardation. 10. Aggressive non-Hodgkin lymphoma diagnosed in 2013, status post R-CHOP times six with recurrence. 11. Acute kidney injury. DISCHARGE MEDICATIONS: - Levaquin 500 mg daily - acetaminophen 325 as needed - calcium 500 twice a day - Debrox five drops both ears twice a day - vitamin D3 at 2000 units daily - guaiphenesin dextromethorphan 5 mL as needed - Lupron Depo 45 mg intramuscular (IM) - loratadine 10 daily - Lutein 6 mg daily - multivitamin one tablet daily - oxybutynin 5 mg twice a day - Protonix 40 twice a day - phenobarbital 64.8 every morning, 97.2 at bedtime The patient's aspirin has been discontinued due to severe thrombocytopenia. DISCHARGE INSTRUCTIONS: The patient is discharged on Rituxan on 08/23/2019, and per Dr. Shabazz, medical oncologist, he is to have a complete blood count (CBC) every week for the next 4 weeks, to be sent over to the [facility], attention Dr. Shabazz. HOSPITAL COURSE: This is a 69-year-old male with past medical history significant for non-Hodgkin lymphoma, status post R-CHOP, diagnosed 2013, times six cycles, mental disability, cerebrovascular accident (CVA), prostate and seizure disorder with permanent pacemaker. Lives at [facility] ([facility] Healthcare proxy is Radha, patient's sister. DO NOT RESUSCITATE, DO NOT INTUBATE male, admitted due to symptomatic anemia with complaints of dizziness. He was found to have a hemoglobin of 3.3 with no gross gastrointestinal (GI) blood loss. Patient was also found to be thrombocytopenic with platelet count of 29. He had acute kidney injury with a creatinine of 1.44. Patient received a total of 8 units of RBC transfusion, 5 platelet phoresis with resultant increase in hemoglobin to 8.1 and 24 hematocrit and platelet count of 29,000. CT chest, abdomen, and pelvis shows mediastinal adenopathy, which has developed since last exam. Small bilateral effusions have developed since last exam. CT abdomen and pelvis showed adenopathy and splenomegaly, which have developed since the previous exam, and possible duodenitis, acute cystitis. Patient underwent bone marrow biopsy, pathology showing B-cell lymphoma, most likely follicular lymphoma infiltrating the bone marrow. Per Dr. Shabazz, patient would benefit from Rituxan as early as 08/23/2019 weekly times four with prednisone 100 mg daily for 5 days and vincristine as outpatient. Patient is to receive chemotherapy on 08/23/2019. He passed a home safety evaluation and remained afebrile with no complaints. He was given Levaquin for the urinary tract infection (UTI). Urine culture shows resistance to ampicillin, ampicillin/subactam, resistant to cephazolin, nitrofurantoin, and tigecycline, sensitive to Bactrim, Levaquin, ceftriaxone, cephazolin. With RBC transfusion, patient's acute kidney injury of 1.44 improved to 0.99 on the day of discharge. Patient was medically stable and discharged home to [facility] with immediate followup with Dr. Shabazz, medical oncologist, on 08/23/2019 for chemotherapy with Rituxan. PHYSICAL EXAMINATION: Temperature 97, pulse 69, respiratory rate 18, blood pressure 128/64, 94% on room air. GENERAL: Patient is awake, alert, oriented to person, place, and time, answering questions appropriately. No jugular venous distention (JVD). No thyromegaly. No cervical lymphadenopathy. LUNGS: Diminished with fine crackles at bilateral bases. HEART: S1, S2, sinus rhythm. ABDOMEN: Soft, nontender, nondistended. Positive bowel sounds. EXTREMITIES: No cyanosis, clubbing, or pitting edema. LABORATORY DATA ON DISCHARGE: White count 4.7, hemoglobin 8.1, hematocrit 24, platelet count 29. Sodium 141, potassium 4.3, chloride 109, bicarbonate 24, BUN 29, creatinine 0.99, glucose 107. Microbiology: Urine culture: Morganella morganii. Hemoccult stool negative. IMAGING STUDIES: CT chest, abdomen, and pelvis: Interval development of mediastinal adenopathy since last exam. Small bilateral pleural effusions have developed since the last exam. CT abdomen and pelvis showed splenomegaly, possible duodenitis, adenopathy, and cystitis. TIME SPENT ON DISCHARGE: 30 minutes. Patient is DO NOT RESUSCITATE, DO NOT INTUBATE. Medical order for life- sustaining treatment (MOLST) form has been signed. MTDD
--- NOTE | 2019-09-19 12:29 | REP ---
CT-GUIDED RIGHT ILIAC BONE MARROW BIOPSY The procedure was performed under the direct supervision of Dr. Ash. The risks and benefits of the procedure were explained to the patient and informed consent was obtained. The right iliac bone was localized using CT guidance. The skin was prepped and draped in a sterile fashion. 1% lidocaine was used as a local anesthetic. Using CT guidance a 11-gauge bone biopsy needle system was inserted. 9 ml of fluid was withdrawn as well as one core. All samples were sent to the lab for analysis. The patient tolerated the procedure well and there were no immediate complications. Electronically Signed by REBECA Tay 08/20/2019 08:45 A Electronically Signed by Pelon Ash MD 08/20/2019 08:45 A
== END 2019-08-22 14:11 | disposition home or self-care (01) | DRG 841 ==
LOC: M ED 19:04 → M ED INP 23:45 → ENRESERV 08-16 00:51 → M PCU 08-16 02:40 → M MSPAV 08-20 16:18
PROVIDERS: ADMIT Internal Medicine; ATTEND General Practice
PROC: 07DR3ZX Extraction of Iliac Bone Marrow, Percutaneous Approach, Diagnostic (ICD-10-PCS; principal; 2019-08-20 08:00)
DX: C85.90 Non-Hodgkin lymphoma, unspecified, unspecified site (principal); D61.818 Other pancytopenia; N30.00 Acute cystitis without hematuria; C61 Malignant neoplasm of prostate; G40.909 Epilepsy, unspecified, not intractable, without status epilepticus; D53.9 Nutritional anemia, unspecified; B96.89 Other specified bacterial agents as the cause of diseases classified elsewhere; F79 Unspecified intellectual disabilities; Z66 Do not resuscitate; Z79.82 Long term (current) use of aspirin; Z79.899 Other long term (current) drug therapy; Z88.8 Allergy status to other drugs, medicaments and biological substances; Z95.0 Presence of cardiac pacemaker

== ENCOUNTER 2019-09-14 13:11 | Outpatient (CLI) | payer MEDICARE, MEDICAID ==
[~2019-09-14] VITALS: Ht 172.7 cm; Wt 85.0 kg
[~2019-09-14 13:11] MED LIST changes: +D31000TA2 PO; +LEVA1TAB2 PO
[2019-09-14 13:20] VITALS: BP 113/58
[2019-09-14 13:45] VITALS: BP 113/58
[2019-09-14 14:00] VITALS: BP 116/61
[2019-09-14 14:45] VITALS: BP 122/60
[2019-09-14 15:30] VITALS: BP 122/66
[2019-09-14 16:15] VITALS: BP 122/61
== END 2019-09-14 16:15 | disposition home or self-care (01) ==
LOC: M INFU 13:11
PROVIDERS: ATTEND Specialist
DX: C85.90 Non-Hodgkin lymphoma, unspecified, unspecified site (principal)
CPT/HCPCS: 36430; P9016

== ENCOUNTER → 2019-09-20 | Outpatient (REF) | payer MEDICARE, MEDICAID | LOC: M SMT 08:51 | PROVIDERS: ATTEND Urology | DX: C61 Malignant neoplasm of prostate (principal) ==

== ENCOUNTER → 2019-10-25 | Outpatient (REF) | payer MEDICARE, MEDICAID | LOC: M LAB REF 08:45 | PROVIDERS: ATTEND Physician Assistant Medical | DX: R56.9 Unspecified convulsions (principal) ==

== ENCOUNTER → 2020-06-19 | Outpatient (CLI) | payer MEDICARE, MEDICAID | LOC: M WUC 08:21 | PROVIDERS: ATTEND Physician Assistant Medical | DX: R56.9 Unspecified convulsions (principal) ==

== ENCOUNTER → 2020-09-25 | Outpatient (REF) | payer MEDICARE, MEDICAID | LOC: M SMT 11:00 | PROVIDERS: ATTEND Urology | DX: C61 Malignant neoplasm of prostate (principal) ==

== ENCOUNTER → 2020-11-27 | Outpatient (REF) | payer MEDICARE, MEDICAID | LOC: M LAB REF 08:05 | PROVIDERS: ATTEND Physician Assistant Medical | DX: R56.9 Unspecified convulsions (principal) ==

== ENCOUNTER → 2021-03-23 | Outpatient (REF) | payer MEDICARE, MEDICAID | LOC: M LAB REF 08:13 | PROVIDERS: ATTEND Urology | DX: C61 Malignant neoplasm of prostate (principal) ==

== ENCOUNTER 2021-05-04 15:05 | Observation (INO) | payer MEDICARE, MEDICAID ==
[2021-05-04] VITALS (8 sets, daily range): BP systolic 80–118; BP diastolic 40–62
[~2021-05-04] VITALS: Ht 170.2 cm; Wt 82.0 kg
[~2021-05-04 15:05] MED LIST changes: +ALBUTEROL 90 MCG/ACT 8GM HFA INHALER INH PRN; +ALBUTEROL SULFATE 2.5 MG/0.5 ML INH NEB SOLN INH PRN; -D31000TA2 PO; +EPINEPHrine INJ 1 MG/ML 1ML AMP IM PRN; +NS 1,000 ML IV SCH; +VITA100093 PO; +diphenhydrAMINE 50MG/ML VIAL (J1200) IV PRN; +methylPREDNISolone 125MG 2ML VIAL IV PRN
[2021-05-04] MEDS ORDERED: SOTROVIMAB 500 MG in NS 100 ML IV ONE (16:00)
[2021-05-04] MEDS ORDERED: ACETAMINOPHEN 500 MG TAB PO ONE (16:45)
[2021-05-04] MEDS ORDERED: NS 1,000 ML IV ONE (18:40)
[2021-05-04 19:37] LABS: BASO % 0.3 % (0.0-1.0); HEMATOCRIT 29.3 % (42.0-52.0); HEMOGLOBIN 9.9 g/dl (13.5-17.5); LYMPH # 0.7 10^3/uL (1.5-5.0); LYMPH % 21.7 % (24.0-44.0); MEAN CORPUSCULAR HEMOGLOBIN 32.6 pg (27.0-33.0); MEAN CORPUSCULAR HGB CONC 33.8 g/dl (32.0-36.5); MEAN CORPUSCULAR VOLUME 96.4 fl (80.0-96.0); MONO # 0.5 10^3/uL (0.0-0.8); NEUTROPHILS # 1.8 10^3/uL (1.5-8.5); NEUTROPHILS % 61.3 % (36.0-66.0); PLATELET COUNT, AUTOMATED 156 10^3/uL (150-450); RED BLOOD COUNT 3.04 10^6/uL (4.30-6.10)
[2021-05-04 19:45] LABS: BLOOD UREA NITROGEN 26 MG/DL (7-18); CALCIUM LEVEL 7.5 MG/DL (8.8-10.2); CARBON DIOXIDE LEVEL 25 MEQ/L (21-32); CHLORIDE LEVEL 103 MEQ/L (98-107); CREATININE FOR GFR 1.08 MG/DL (0.70-1.30); GLOMERULAR FILTRATION RATE > 60.0 (>42); GLUCOSE, FASTING 179 MG/DL (70-100); MAGNESIUM LEVEL 1.7 MG/DL (1.8-2.4); POTASSIUM SERUM 3.7 MEQ/L (3.5-5.1); SODIUM LEVEL 135 MEQ/L (136-145)
[2021-05-04 19:47] LABS: INR 1.15; PROTHROMBIN TIME 15.1 SECONDS (12.7-14.5)
[2021-05-04 19:48] LABS: PARTIAL THROMBOPLASTIN TIME 43.4 SECONDS (25.9-37.0)
[2021-05-04 19:50] LABS: D-DIMER QUANT 1470.63 ng/ml (<500)
[2021-05-04 19:55] LABS: ALBUMIN 2.6 GM/DL (3.2-5.2); BILIRUBIN,DIRECT 0.1 MG/DL (0.0-0.2); BILIRUBIN,TOTAL 0.3 MG/DL (0.2-1.0); C REACTIVE PROTEIN QUANTITATIV 22.8 MG/DL (0.00-0.30); TOTAL PROTEIN 5.4 GM/DL (6.4-8.2)
[2021-05-04] MEDS ORDERED: MAGNESIUM OXIDE 400MG TAB (MAG-OX) PO ONE (20:50)
[2021-05-04] MEDS ORDERED: CHLORASEPTIC SPRAY MT PRN (20:50)
[2021-05-04] MEDS ORDERED: guaiFENesin DM LIQ 10ML UD PO ONE (20:50)
[2021-05-04] MEDS ORDERED: FLUTICASONE PROP 0.05% NASAL SPRAY 16 GM (FLONASE) NARES PRN (21:00)
[2021-05-04 21:04] LABS: APPEARANCE, URINE CLOUDY (CLEAR); BACTERIA, URINE AUTO 3+ (NEGATIVE); BILIRUBIN, URINE AUTO NEGATIVE (NEGATIVE); BLOOD, URINE BLOOD 2+ (NEGATIVE); COLOR, URINE AMBER (YELLOW); GLUCOSE, URINE (UA) AUTO NEGATIVE (NEGATIVE); KETONE, URINE AUTO TRACE mg/dL (NEGATIVE); LEUKOCYTE ESTERASE, URINE AUTO 1+ (NEGATIVE); NITRITE, URINE AUTO POSITIVE (NEGATIVE); PROTEIN, URINE AUTO 2+ mg/dL (NEGATIVE); RBC, URINE AUTO 8 /HPF (0-3); RENAL EPITHELIAL CELLS 1 /HPF; SQUAMOUS EPITHELIAL CELL UR AU 0 /HPF (0-6); UROBILINOGEN, URINE AUTO 0.2 mg/dL (0.0-2.0); WBC, URINE AUTO TNTC /HPF (0-3)
[2021-05-04 21:12] LABS: PHENOBARBITAL LEVEL 25.2 UG/ML (15.0-40.0)
[2021-05-04] MEDS: NS 1,000 ML IV SCH (21:21)
[2021-05-04] MEDS ORDERED: XALA0.007 OU (21:22)
[2021-05-04] MEDS ORDERED: LORA-930 PO (21:42)
[2021-05-04] MEDS ORDERED: OYST500T92 PO (21:42)
[2021-05-04] MEDS ORDERED: IBUP-1427 PO (21:42)
[2021-05-04] MEDS ORDERED: NEOM14OI EXT (21:42)
[2021-05-04] MEDS ORDERED: VITMTA PO (21:42)
[2021-05-04] MEDS ORDERED: ZINC20OI21 TOP (21:42)
[2021-05-04] MEDS ORDERED: GUAI100S51 PO (21:42)
[2021-05-04] MEDS ORDERED: HOME MED LIST COMPLETE! XX SCH (21:45)
[2021-05-04] MEDS: cefTRIAXone SOD 1 GM in D5W MINI-BAG PLUS 50 ML IV SCH (22:36)
[2021-05-04] MEDS: LORATADINE 10 MG TAB PO SCH (22:36)
[2021-05-04] MEDS: PHENobarbitaL 30 MG TAB PO SCH (22:36)
[2021-05-04] MEDS: ACETAMINOPHEN TAB 650MG DOSE (2X325MG) PO PRN (23:39)
[2021-05-05] MEDS: IBUPROFEN 400MG TAB PO PRN ×2 (02:17→13:58)
[2021-05-05] MEDS: LATANOPROST 0.005% OPHTH SOLN 2.5 ML OU SCH ×2 (02:25→20:14)
[2021-05-05 03:39] VITALS: BP 104/60
[2021-05-05 06:04] LABS: BASO % 0.7 % (0.0-1.0); EOS % 0.3 % (0.0-3.0); HEMATOCRIT 27.7 % (42.0-52.0); HEMOGLOBIN 9.1 g/dl (13.5-17.5); LYMPH % 34.7 % (24.0-44.0); MEAN CORPUSCULAR HGB CONC 32.9 g/dl (32.0-36.5); MEAN CORPUSCULAR VOLUME 97.5 fl (80.0-96.0); MONO # 0.3 10^3/uL (0.0-0.8); MONO % 11.3 % (2.0-8.0); NEUTROPHILS # 1.5 10^3/uL (1.5-8.5); NEUTROPHILS % 50.7 % (36.0-66.0); PLATELET COUNT, AUTOMATED 148 10^3/uL (150-450); RED BLOOD COUNT 2.84 10^6/uL (4.30-6.10)
[2021-05-05] MEDS: PANTOPRAZOLE 40MG TAB (PROTONIX) PO SCH ×2 (06:10→16:37)
[2021-05-05 06:28] LABS: BLOOD UREA NITROGEN 24 MG/DL (7-18); CALCIUM LEVEL 7.2 MG/DL (8.8-10.2); CARBON DIOXIDE LEVEL 26 MEQ/L (21-32); CHLORIDE LEVEL 106 MEQ/L (98-107); CREATININE FOR GFR 0.97 MG/DL (0.70-1.30); GLOMERULAR FILTRATION RATE > 60.0 (>42); GLUCOSE, FASTING 99 MG/DL (70-100); MAGNESIUM LEVEL 1.7 MG/DL (1.8-2.4); POTASSIUM SERUM 3.5 MEQ/L (3.5-5.1); SODIUM LEVEL 136 MEQ/L (136-145)
[2021-05-05] MEDS ORDERED: MAG SULF 1GM/100ML (MAG RUN) 1 GM in IV 1 EA IV ONE (08:00)
[2021-05-05] MEDS: ACETAMINOPHEN TAB 650MG DOSE (2X325MG) PO PRN ×2 (09:06→21:42)
[2021-05-05] MEDS: PHENobarbitaL 30 MG TAB PO SCH ×2 (09:07→20:15)
[2021-05-05] MEDS: MULTIVITAMINS/MINERALS THERAP 1 TAB PO SCH (09:07)
[2021-05-05] MEDS: CARBAMIDE PEROXIDE 6.5% OTIC SOLN 15ML AU SCH ×2 (09:07→20:15)
[2021-05-05] MEDS: VITAMIN D 1,000 INTERNATIONAL UNITS TABLET PO SCH (09:07)
[2021-05-05] MEDS: ENOXAPARIN 40MG/0.4ML SYRINGE (J1650 PER 10MG) SC SCH (09:08)
[2021-05-05] MEDS: NS 1,000 ML IV SCH (10:59)
[2021-05-05] MEDS: guaiFENesin ER 600 MG TAB PO PRN (10:59)
[2021-05-05 13:47] VITALS: BP 108/48
[2021-05-05] MEDS: CALCIUM/VITAMIN D 500 MG TAB PO SCH ×2 (16:37→20:14)
[2021-05-05 19:47] VITALS: BP 106/54
[2021-05-05] MEDS: cefTRIAXone SOD 1 GM in D5W MINI-BAG PLUS 50 ML IV SCH (20:14)
[2021-05-05] MEDS: LORATADINE 10 MG TAB PO SCH (20:14)
[2021-05-06] MEDS: guaiFENesin ER 600 MG TAB PO PRN (03:01)
[2021-05-06] MEDS: IBUPROFEN 400MG TAB PO PRN (03:01)
[2021-05-06 05:45] VITALS: BP 101/60
[2021-05-06] MEDS ORDERED: LevoFLOXacin 750 MG TABLET PO SCH (06:00)
[2021-05-06 06:06] LABS: HEMATOCRIT 27.2 % (42.0-52.0); HEMOGLOBIN 9.2 g/dl (13.5-17.5); MEAN CORPUSCULAR HEMOGLOBIN 32.5 pg (27.0-33.0); MEAN CORPUSCULAR HGB CONC 33.8 g/dl (32.0-36.5); MEAN CORPUSCULAR VOLUME 96.1 fl (80.0-96.0); PLATELET COUNT, AUTOMATED 156 10^3/uL (150-450); RED BLOOD COUNT 2.83 10^6/uL (4.30-6.10); WHITE BLOOD COUNT 2.6 10^3/uL (4.0-10.0)
[2021-05-06 06:17] LABS: INR 1.21; PROTHROMBIN TIME 15.7 SECONDS (12.7-14.5)
[2021-05-06 06:18] LABS: PARTIAL THROMBOPLASTIN TIME 46.2 SECONDS (25.9-37.0)
[2021-05-06] MEDS: PANTOPRAZOLE 40MG TAB (PROTONIX) PO SCH (06:40)
[2021-05-06 06:50] LABS: ALT/SGPT 37 U/L (12-78); BILIRUBIN,DIRECT 0.1 MG/DL (0.0-0.2); BILIRUBIN,TOTAL 0.2 MG/DL (0.2-1.0); BLOOD UREA NITROGEN 22 MG/DL (7-18); CALCIUM LEVEL 7.1 MG/DL (8.8-10.2); CARBON DIOXIDE LEVEL 25 MEQ/L (21-32); CHLORIDE LEVEL 107 MEQ/L (98-107); CREATININE FOR GFR 0.92 MG/DL (0.70-1.30); FERRITIN 2111 NG/ML (26-388); GLOMERULAR FILTRATION RATE > 60.0 (>42); GLUCOSE, FASTING 110 MG/DL (70-100); LDH LACTATE DEHYDROGENASE 361 U/L (87-241); MAGNESIUM LEVEL 2.1 MG/DL (1.8-2.4); NT-PRO BNP 4365 PG/ML (<125); POTASSIUM SERUM 3.6 MEQ/L (3.5-5.1); SODIUM LEVEL 138 MEQ/L (136-145); TOTAL PROTEIN 4.5 GM/DL (6.4-8.2)
[2021-05-06 06:51] LABS: EOSINOPHILS 3 % (0-3); LYMPHOCYTES 16 % (16-44); MONOCYTES 9 % (0-5); NEUTROPHILS 71 % (28-66); PLATELET ESTIMATE NORMAL (NORMAL)
[2021-05-06] MEDS: CARBAMIDE PEROXIDE 6.5% OTIC SOLN 15ML AU SCH (08:17)
[2021-05-06] MEDS: ENOXAPARIN 40MG/0.4ML SYRINGE (J1650 PER 10MG) SC SCH (08:17)
[2021-05-06] MEDS: PHENobarbitaL 30 MG TAB PO SCH (08:17)
[2021-05-06] MEDS: MULTIVITAMINS/MINERALS THERAP 1 TAB PO SCH (08:17)
[2021-05-06] MEDS: VITAMIN D 1,000 INTERNATIONAL UNITS TABLET PO SCH (08:17)
[2021-05-06 08:43] VITALS: O2SAT 95
[2021-05-06] MEDS: ACETAMINOPHEN TAB 650MG DOSE (2X325MG) PO PRN (09:22)
[2021-05-06] MEDS ORDERED: LEVO750T13 PO (09:50)
== END 2021-05-06 11:31 | disposition home or self-care (01) ==
LOC: M OPCLI4PR 15:05 → M 4MAIN 15:06
PROVIDERS: ADMIT Family Medicine; ATTEND Family Medicine
DX: U07.1 COVID-19 (principal); G40.909 Epilepsy, unspecified, not intractable, without status epilepticus; I49.9 Cardiac arrhythmia, unspecified; C85.90 Non-Hodgkin lymphoma, unspecified, unspecified site; C61 Malignant neoplasm of prostate; Z86.73 Personal history of transient ischemic attack (TIA), and cerebral infarction without residual deficits; Z95.0 Presence of cardiac pacemaker; F79 Unspecified intellectual disabilities; I95.9 Hypotension, unspecified; N39.0 Urinary tract infection, site not specified; K21.9 Gastro-esophageal reflux disease without esophagitis; D64.9 Anemia, unspecified; E83.51 Hypocalcemia; Z79.899 Other long term (current) drug therapy; Z79.2 Long term (current) use of antibiotics; Z88.4 Allergy status to anesthetic agent; Z87.891 Personal history of nicotine dependence
CPT/HCPCS: 36415; 71045; 80048; 80076; 80184; 81001; 82330; 82550; 82728; 83605; 83615; 83735; 83880; 84145; 85025; 85379; 85384; 85610; 85730; 86140; 87040; 87086; 96361; 96365; 96372; 96375; 96376; 97161; G0378; J0696; J1650; J3475

== ENCOUNTER → 2021-06-02 | Outpatient (CLI) | payer MEDICARE, MEDICAID ==
[~2021-06-02] MED LIST changes: -ALBUTEROL 90 MCG/ACT 8GM HFA INHALER INH PRN; -ALBUTEROL SULFATE 2.5 MG/0.5 ML INH NEB SOLN INH PRN; +BUPIVACAINE HCL 0.5% 10ML VIAL As Ordered ONE; -EPINEPHrine INJ 1 MG/ML 1ML AMP IM PRN; +GUAI100S51 PO; +IBUP-1427 PO; +LEVO750T13 PO; +LORA-930 PO; +NEOM14OI EXT; -NS 1,000 ML IV SCH; +OYST500T92 PO; +VITMTA PO; +XALA0.007 OU; +ZINC20OI21 TOP; -diphenhydrAMINE 50MG/ML VIAL (J1200) IV PRN; -methylPREDNISolone 125MG 2ML VIAL IV PRN
[2021-06-02 12:05] LABS: BASO % 0.6 % (0.0-1.0); EOS # 0.1 10^3/uL (0.0-0.5); EOS % 2.1 % (0.0-3.0); HEMATOCRIT 37.5 % (42.0-52.0); HEMOGLOBIN 12.4 g/dl (13.5-17.5); LYMPH # 1.9 10^3/uL (1.5-5.0); LYMPH % 37.1 % (24.0-44.0); MEAN CORPUSCULAR HEMOGLOBIN 32.9 pg (27.0-33.0); MEAN CORPUSCULAR HGB CONC 33.1 g/dl (32.0-36.5); MEAN CORPUSCULAR VOLUME 99.5 fl (80.0-96.0); MONO # 0.6 10^3/uL (0.0-0.8); MONO % 11.2 % (2.0-8.0); NEUTROPHILS # 2.5 10^3/uL (1.5-8.5); NEUTROPHILS % 47.6 % (36.0-66.0); PLATELET COUNT, AUTOMATED 165 10^3/uL (150-450); RED BLOOD COUNT 3.77 10^6/uL (4.30-6.10); WHITE BLOOD COUNT 5.2 10^3/uL (4.0-10.0)
[2021-06-02 12:15] VITALS: BP 123/60
== END ==
LOC: M IRPRO 10:20
PROVIDERS: ATTEND Specialist
DX: C85.90 Non-Hodgkin lymphoma, unspecified, unspecified site (principal); D64.9 Anemia, unspecified

== ENCOUNTER → 2021-09-30 | Outpatient (CLI) | payer MEDICARE, MEDICAID ==
[~2021-09-30] MED LIST changes: -BUPIVACAINE HCL 0.5% 10ML VIAL As Ordered ONE; +DEBR6.5S4 OTIC; +LEVO1TAB40 PO; -LEVO750T13 PO
== END ==
LOC: M WUC 08:08
PROVIDERS: ATTEND Urology
DX: C61 Malignant neoplasm of prostate (principal)

== ENCOUNTER → 2022-02-15 | Outpatient (REF) | payer MEDICARE, MEDICAID | LOC: M LAB REF 08:45 | PROVIDERS: ATTEND Internal Medicine | DX: R73.01 Impaired fasting glucose (principal) ==

== ENCOUNTER → 2022-03-29 | Outpatient (CLI) | payer MEDICARE, MEDICAID | LOC: M WUC 09:07 | PROVIDERS: ATTEND Urology | DX: C61 Malignant neoplasm of prostate (principal) ==

== ENCOUNTER 2022-07-13 16:47 | Emergency (ER) | payer MEDICARE, MEDICAID ==
[~2022-07-13] VITALS: Ht 182.9 cm; Wt 85.0 kg
[2022-07-13 22:11] VITALS: BP 152/75
== END 2022-07-13 22:14 | disposition home or self-care (01) ==
LOC: M ED 16:47
DX: S92.491A Other fracture of right great toe, initial encounter for closed fracture (principal); W19.XXXA Unspecified fall, initial encounter; Y92.009 Unspecified place in unspecified non-institutional (private) residence as the place of occurrence of the external cause; Y93.89 Activity, other specified; Y99.8 Other external cause status; G40.909 Epilepsy, unspecified, not intractable, without status epilepticus; I51.7 Cardiomegaly; K21.9 Gastro-esophageal reflux disease without esophagitis; Z86.73 Personal history of transient ischemic attack (TIA), and cerebral infarction without residual deficits; Z95.0 Presence of cardiac pacemaker; Z88.4 Allergy status to anesthetic agent; Z85.46 Personal history of malignant neoplasm of prostate; Z79.899 Other long term (current) drug therapy

== ENCOUNTER → 2022-09-30 | Outpatient (REF) | payer MEDICARE, MEDICAID | LOC: M LABWUC 09:31 | PROVIDERS: ATTEND Urology | DX: C61 Malignant neoplasm of prostate (principal) ==

== ENCOUNTER → 2022-10-26 | Outpatient (CLI) | payer MEDICARE, MEDICAID | LOC: M SOG 08:16 | PROVIDERS: ATTEND Physician Assistant | DX: S92.411S Displaced fracture of proximal phalanx of right great toe, sequela (principal) ==

== ENCOUNTER 2022-11-09 17:37 | Emergency (ER) | payer MEDICARE, MEDICAID ==
[~2022-11-09] VITALS: Ht 172.7 cm; Wt 85.5 kg
[2022-11-09 18:38] LABS: MEAN CORPUSCULAR HEMOGLOBIN 33.3 pg (27.0-33.0); MEAN CORPUSCULAR HGB CONC 32.8 g/dl (32.0-36.5); MEAN CORPUSCULAR VOLUME 101.6 fl (80.0-96.0); RED BLOOD COUNT 1.26 10^6/uL (4.30-6.10); WHITE BLOOD COUNT 3.3 10^3/uL (4.0-10.0)
[2022-11-09 18:39] LABS: HEMATOCRIT 12.8 % (42.0-52.0)
[2022-11-09 18:42] LABS: HEMOGLOBIN 4.2 g/dl (13.5-17.5)
[2022-11-09 18:52] LABS: PLATELET COUNT, AUTOMATED 9 10^3/uL (150-450)
[2022-11-09 19:01] LABS: CK-MB VALUE MASS 1.7 NG/ML (<3.6)
[2022-11-09 19:03] LABS: ALBUMIN 3.3 G/DL (3.2-5.2); ATYPICAL LYMPH 10 % (0-5); BASOPHILS 2 % (0-1); BILIRUBIN,DIRECT 0.2 MG/DL (<0.4); BILIRUBIN,TOTAL 0.6 MG/DL (0.3-1.2); CALCIUM LEVEL 8.4 MG/DL (8.3-10.6); CREATININE FOR GFR 1.27 MG/DL (0.70-1.30); EOSINOPHILS 1 % (0-3); GLOMERULAR FILTRATION RATE 59.5 (>42); LYMPHOCYTES 53 % (16-44); MB/CK RELATIVE INDEX 0.78 (< OR =4); MONOCYTES 5 % (0-5); NEUTROPHILS 29 % (28-66); POTASSIUM SERUM 4.3 MMOL/L (3.5-5.1); TOTAL PROTEIN 5.8 G/DL (5.7-8.2)
[2022-11-09 19:04] LABS: PLATELET ESTIMATE MARKED DECREASE (NORMAL); THYROXINE (T4) 11.3 UG/DL (4.5-10.9)
[2022-11-09 19:05] LABS: THYROID STIMULATING HORMONE 5.797 uIU/ML (0.55-4.78)
[2022-11-09 19:06] LABS: POLYCHROMASIA 2+
[2022-11-09 21:19] VITALS: BP 119/59; TEMP 101.1; O2SAT 94
[2022-11-09 21:30] VITALS: BP 119/59; TEMP 101.1; O2SAT 94
[2022-11-09 21:44] LABS: CK-MB VALUE MASS 1.5 NG/ML (<3.6); MB/CK RELATIVE INDEX 0.7 (< OR =4)
[2022-11-09 21:45] VITALS: BP 124/63; TEMP 100.9; O2SAT 95
[2022-11-09] MEDS ORDERED: ACETAMINOPHEN TAB 650MG DOSE (2X325MG) PO ONE (22:25)
[2022-11-09 22:45] VITALS: BP 120/64; TEMP 101; O2SAT 95
[2022-11-09 23:30] VITALS: BP 115/65; TEMP 100.1; O2SAT 93
[2022-11-09 23:45] VITALS: BP 112/63; TEMP 100.4; O2SAT 93
[2022-11-10] VITALS (9 sets, daily range): BP systolic 103–121; BP diastolic 58–65; TEMP 98.6–100.1; O2SAT 93–98
== END 2022-11-10 07:04 | disposition short-term general hospital (02) ==
LOC: M ED 17:37
DX: U07.1 COVID-19 (principal); C85.90 Non-Hodgkin lymphoma, unspecified, unspecified site; D61.818 Other pancytopenia; I49.1 Atrial premature depolarization; I10 Essential (primary) hypertension; E78.5 Hyperlipidemia, unspecified; K21.9 Gastro-esophageal reflux disease without esophagitis; Z88.8 Allergy status to other drugs, medicaments and biological substances; Z79.811 Long term (current) use of aromatase inhibitors; Z79.810 Long term (current) use of selective estrogen receptor modulators (SERMs); Z79.899 Other long term (current) drug therapy
CPT/HCPCS: 36415; 36430; 71045; 73502; 80048; 80076; 82550; 82553; 83605; 83880; 84436; 84443; 84484; 85025; 85049; 85055; 86850; 86900; 86901; 86920; 86927; 87040; 87486; 87581; 87633; 87798; 93005; 93041; 94760; 99285; P9016; P9017; P9034

== ENCOUNTER → 2022-12-31 | Outpatient (CLI) | payer MEDICARE, MEDICAID ==
[~2022-12-31] MED LIST changes: +AZIT-12 PO; +BRIM2OPD; +DICL100G10 TOP; +Lutein PO; -OXYB5TAB10 PO; +OXYB5TAB11 PO; +OYST500T11 PO; +TRAM50TA2; +ZYRTTAB8 PO
[2022-12-31 17:00] LABS: INR 1.09; PROTHROMBIN TIME 13.8 SECONDS (12.5-14.5)
[2022-12-31 17:01] LABS: PARTIAL THROMBOPLASTIN TIME 30.8 SECONDS (24.8-34.2)
== END ==
LOC: M WUC 12:43
PROVIDERS: ATTEND Internal Medicine Hematology & Oncology
DX: Z79.01 Long term (current) use of anticoagulants (principal)

== ENCOUNTER → 2023-01-03 | Outpatient (CLI) | payer MEDICARE, MEDICAID ==
[~2023-01-03] VITALS: Ht 172.7 cm; Wt 81.3 kg
[~2023-01-03] MED LIST changes: +ISOVUE-300 61% 100ML VIAL As Ordered ONE; +LIDOCAINE 1% MDV 20ML VIAL As Ordered ONE; +LIDOCAINE W/EPINEPHRINE 1% 20ML VIAL As Ordered ONE; +MIDAZOLAM INJ 2MG/2ML VIAL As Ordered ONE; +NS 1,000 ML IV SCH; +ceFAZolin 2 GM/D5W 50 ML IV BAG As Ordered ONE; +ceFAZolin SOD 2 GM in IV 1 EA IV ONE; +fentaNYL 100 MCG/2 ML INJECTION As Ordered ONE
[2023-01-03 13:50] VITALS: TEMP 97
[2023-01-03 15:45] VITALS: BP 128/76; O2SAT 94
== END ==
LOC: M IRPRO 13:46
PROVIDERS: ATTEND Specialist
DX: C82.90 Follicular lymphoma, unspecified, unspecified site (principal)
CPT/HCPCS: 36561; 99152; 99153; J0690; J2250; J3010; Q9967

== ENCOUNTER → 2023-03-07 | Outpatient (CLI) | payer MEDICARE, MEDICAID ==
[~2023-03-07] MED LIST changes: +GASTROGRAFIN SOLUTION 30ML As Ordered ONE; -ISOVUE-300 61% 100ML VIAL As Ordered ONE; +ISOVUE-370 76% 100ML VIAL As Ordered ONE; +LIDO30CR18 TOP; -LIDOCAINE 1% MDV 20ML VIAL As Ordered ONE; -LIDOCAINE W/EPINEPHRINE 1% 20ML VIAL As Ordered ONE; -MIDAZOLAM INJ 2MG/2ML VIAL As Ordered ONE; -NS 1,000 ML IV SCH; -ceFAZolin 2 GM/D5W 50 ML IV BAG As Ordered ONE; -ceFAZolin SOD 2 GM in IV 1 EA IV ONE; -fentaNYL 100 MCG/2 ML INJECTION As Ordered ONE
== END ==
LOC: M RAD 08:05
PROVIDERS: ATTEND Internal Medicine Hematology & Oncology
DX: C85.90 Non-Hodgkin lymphoma, unspecified, unspecified site (principal)
CPT/HCPCS: 71260; 74177; Q9963; Q9967

== ENCOUNTER → 2023-03-21 | Outpatient (REF) | payer MEDICARE, MEDICAID ==
[~2023-03-21] MED LIST changes: -GASTROGRAFIN SOLUTION 30ML As Ordered ONE; -ISOVUE-370 76% 100ML VIAL As Ordered ONE
== END ==
LOC: M SMT 09:42
PROVIDERS: ATTEND Urology
DX: C61 Malignant neoplasm of prostate (principal)

== ENCOUNTER → 2023-09-07 | Outpatient (CLI) | payer MEDICARE, MEDICAID ==
[~2023-09-07] MED LIST changes: +GASTROGRAFIN SOLUTION 30ML As Ordered ONE; +ISOVUE-370 76% 100ML VIAL As Ordered ONE; -OXYB5TAB11 PO; +OXYB5TAB14 PO; +TIMO5DRO5 OP
== END ==
LOC: M RAD 09:11
PROVIDERS: ATTEND Specialist
DX: C85.90 Non-Hodgkin lymphoma, unspecified, unspecified site (principal)
CPT/HCPCS: 70470; 70491; 71260; 74177; Q9963; Q9967

== ENCOUNTER → 2023-09-29 | Outpatient (CLI) | payer MEDICARE, MEDICAID ==
[~2023-09-29] MED LIST changes: -GASTROGRAFIN SOLUTION 30ML As Ordered ONE; -ISOVUE-370 76% 100ML VIAL As Ordered ONE; +LIDOCAINE 1% MDV 20ML VIAL As Ordered ONE; +NS 1,000 ML IV SCH; +TRAM50TA2 PO
[2023-09-29 14:00] VITALS: BP 132/63; TEMP 97; O2SAT 97
== END ==
LOC: M IRPRO 13:42
PROVIDERS: ATTEND Specialist
DX: C83.30 Diffuse large B-cell lymphoma, unspecified site (principal)

== ENCOUNTER → 2023-10-06 | Outpatient (CLI) | payer MEDICARE, MEDICAID ==
[~2023-10-06] MED LIST changes: -LIDOCAINE 1% MDV 20ML VIAL As Ordered ONE; -NS 1,000 ML IV SCH
== END ==
LOC: M WUC 08:33
PROVIDERS: ATTEND Urology
DX: C61 Malignant neoplasm of prostate (principal)

== ENCOUNTER → 2023-10-26 | Outpatient (CLI) | payer MEDICARE, MEDICAID ==
[~2023-10-26] MED LIST changes: +TRAM1CAP15 PO
== END ==
LOC: M ONCR 13:56
PROVIDERS: ATTEND General Practice
DX: C85.11 Unspecified B-cell lymphoma, lymph nodes of head, face, and neck (principal); C61 Malignant neoplasm of prostate; Z79.1 Long term (current) use of non-steroidal anti-inflammatories (NSAID); Z79.891 Long term (current) use of opiate analgesic; Z79.899 Other long term (current) drug therapy; Z88.4 Allergy status to anesthetic agent; Z92.21 Personal history of antineoplastic chemotherapy; Z92.3 Personal history of irradiation; Z95.0 Presence of cardiac pacemaker

== ENCOUNTER → 2023-11-28 | Outpatient (RCR) | payer MEDICARE, MEDICAID | LOC: M ONCR 11-15 10:28 | PROVIDERS: ATTEND General Practice | DX: Z51.0 Encounter for antineoplastic radiation therapy (principal); C85.11 Unspecified B-cell lymphoma, lymph nodes of head, face, and neck ==

== ENCOUNTER 2023-12-14 13:53 | Outpatient (RCR) | payer MEDICARE, MEDICAID | END 2023-12-29 | LOC: M ONCR 13:53 | PROVIDERS: ATTEND General Practice | DX: Z51.0 Encounter for antineoplastic radiation therapy (principal); C85.11 Unspecified B-cell lymphoma, lymph nodes of head, face, and neck ==

== ENCOUNTER → 2024-01-12 | Outpatient (CLI) | payer MEDICARE, MEDICAID ==
[~2024-01-12] MED LIST changes: +ACAL100T PO; +LIDOCAINE 1% MDV 20ML VIAL As Ordered ONE
[2024-01-12 12:50] VITALS: TEMP 98
[2024-01-12 13:14] LABS: BASO % 0.5 % (0.0-1.0); EOS # 0.1 10^3/uL (0.0-0.5); HEMATOCRIT 32.5 % (42.0-52.0); HEMOGLOBIN 10.6 g/dl (13.5-17.5); LYMPH % 51.3 % (24.0-44.0); MEAN CORPUSCULAR HEMOGLOBIN 32.7 pg (27.0-33.0); MEAN CORPUSCULAR HGB CONC 32.6 g/dl (32.0-36.5); MEAN CORPUSCULAR VOLUME 100.3 fl (80.0-96.0); MONO % 26.1 % (2.0-8.0); NEUTROPHILS % 16.3 % (36.0-66.0); RED BLOOD COUNT 3.24 10^6/uL (4.30-6.10)
[2024-01-12 13:18] VITALS: BP 123/59; O2SAT 98
[2024-01-12 14:14] LABS: NEUTROPHILS # 0.7 10^3/uL (1.5-8.5); PLATELET COUNT, AUTOMATED 51 10^3/uL (150-450)
== END ==
LOC: M IRPRO 12:22
PROVIDERS: ATTEND Specialist
DX: C85.90 Non-Hodgkin lymphoma, unspecified, unspecified site (principal)

== ENCOUNTER → 2024-01-20 | Outpatient (REF) | payer MEDICARE, MEDICAID ==
[~2024-01-20] MED LIST changes: -LIDOCAINE 1% MDV 20ML VIAL As Ordered ONE
[2024-01-20 15:16] LABS: ALBUMIN 3.4 G/DL (3.2-5.2); ALKALINE PHOSPHATASE 138 U/L (40-129); ALT/SGPT 20 U/L (7.0-40); AST/SGOT 14 U/L (<34); BILIRUBIN,TOTAL 0.4 MG/DL (0.3-1.2); BLOOD UREA NITROGEN 39 MG/DL (9-23); CALCIUM LEVEL 9.7 MG/DL (8.3-10.6); CARBON DIOXIDE LEVEL 28 MMOL/L (20-31); CHLORIDE LEVEL 104 MMOL/L (98-107); CHOLESTEROL LEVEL 156 MG/DL (<200); CREATININE FOR GFR 0.98 MG/DL (0.70-1.30); GLOMERULAR FILTRATION RATE > 60.0 (>42); HDL CHOLESTEROL 29.4 MG/DL (>40); NON-HDL-C 126.6 MG/DL; POTASSIUM SERUM 4.4 MMOL/L (3.5-5.1); SODIUM LEVEL 140 MMOL/L (136-145); TRIGLYCERIDES LEVEL 183 MG/DL (<150)
[2024-01-23 07:50] LABS: GLUCOSE, FASTING 124 MG/DL (74-106)
== END ==
LOC: M LAB REF 14:18
PROVIDERS: ATTEND Internal Medicine
DX: E11.9 Type 2 diabetes mellitus without complications (principal)

== ENCOUNTER → 2024-01-20 | Outpatient (CLI) | payer MEDICARE, MEDICAID | LOC: M ONCR 13:58 | PROVIDERS: ATTEND General Practice | DX: C85.11 Unspecified B-cell lymphoma, lymph nodes of head, face, and neck (principal); Z92.3 Personal history of irradiation ==

== ENCOUNTER → 2024-03-06 | Outpatient (CLI) | payer MEDICARE, MEDICAID ==
[~2024-03-06] MED LIST changes: +BACT800T5 PO
== END ==
LOC: M RAD 10:29
PROVIDERS: ATTEND General Practice
DX: C85.11 Unspecified B-cell lymphoma, lymph nodes of head, face, and neck (principal)

== ENCOUNTER → 2024-03-26 | Outpatient (REF) | payer MEDICARE, MEDICAID | LOC: M LAB REF 08:18 | PROVIDERS: ATTEND Urology | DX: C61 Malignant neoplasm of prostate (principal) ==

== ENCOUNTER → 2024-05-09 | Outpatient (CLI) | payer MEDICARE, MEDICAID | LOC: M EKG 13:00 | PROVIDERS: ATTEND Registered Nurse | DX: I49.3 Ventricular premature depolarization (principal) ==

== ENCOUNTER 2024-06-14 08:49 | Emergency (ER) | payer MEDICARE, MEDICAID ==
[~2024-06-14] VITALS: Ht 172.7 cm; Wt 68.2 kg
[~2024-06-14 08:49] MED LIST changes: +MACR100C43 PO
[2024-06-14] MEDS: SODIUM CHLORIDE 0.9% INJ 10 ML SYR IV PRN (11:15)
[2024-06-14 11:45] LABS: MEAN CORPUSCULAR HEMOGLOBIN 31.5 pg (27.0-33.0); MEAN CORPUSCULAR HGB CONC 31.6 g/dl (32.0-36.5); MEAN CORPUSCULAR VOLUME 99.5 fl (80.0-96.0); RED BLOOD COUNT 1.97 10^6/uL (4.30-6.10); WHITE BLOOD COUNT 6.5 10^3/uL (4.0-10.0)
[2024-06-14 11:49] LABS: HEMATOCRIT 19.6 % (42.0-52.0)
[2024-06-14 11:53] LABS: HEMOGLOBIN 6.2 g/dl (13.5-17.5)
[2024-06-14 11:54] LABS: PLATELET COUNT, AUTOMATED 18 10^3/uL (150-450)
[2024-06-14 12:22] LABS: ATYPICAL LYMPH 3 % (0-5); LYMPHOCYTES 82 % (16-44); METAMYELOCYTES 1 % (0-0); MONOCYTES 6 % (0-5); NEUTROPHILS 8 % (28-66)
[2024-06-14 12:23] LABS: PLATELET ESTIMATE MARKED DECREASE (NORMAL)
[2024-06-14 12:26] LABS: TEAR DROP CELLS 1+
[2024-06-14 12:28] LABS: ANISOCYTOSIS 2+; POIKILOCYTOSIS 2+
[2024-06-14 12:29] LABS: POLYCHROMASIA 1+; SPHEROCYTES 1+
[2024-06-14 12:30] LABS: ALBUMIN 2.9 G/DL (3.2-5.2); BILIRUBIN,DIRECT 0.1 MG/DL (<0.4); BILIRUBIN,TOTAL 0.3 MG/DL (0.3-1.2); CALCIUM LEVEL 9.1 MG/DL (8.3-10.6); CREATININE FOR GFR 1.04 MG/DL (0.70-1.30); GLOMERULAR FILTRATION RATE 75.8 (>42); POTASSIUM SERUM 4.3 MMOL/L (3.5-5.1); TOTAL PROTEIN 5.3 G/DL (5.7-8.2)
[2024-06-14] MEDS ORDERED: PANT-23 PO (13:52)
[2024-06-14] MEDS ORDERED: DEBR6.5S4 AU (13:52)
[2024-06-14] MEDS ORDERED: LORA-930 PO (13:52)
[2024-06-14] MEDS ORDERED: IBUP200T46 PO (13:52)
[2024-06-14] MEDS ORDERED: PHEN64.8 PO (13:52)
[2024-06-14] MEDS ORDERED: ACET-910 PO (13:52)
[2024-06-14] MEDS ORDERED: BRIM2OPD OU (13:52)
[2024-06-14] MEDS ORDERED: THERTAB52 PO (13:52)
[2024-06-14] MEDS ORDERED: VITA200020 PO (13:56)
[2024-06-14] MEDS ORDERED: TRAM50TA2 PO (13:56)
[2024-06-14] MEDS ORDERED: BACTDSTA PO (13:56)
[2024-06-14] MEDS ORDERED: HOME MED LIST COMPLETE! XX SCH (14:00)
[2024-06-14 14:01] VITALS: BP 118/67; O2SAT 100
[2024-06-14 14:40] VITALS: TEMP 97.2
== END 2024-06-14 14:41 | disposition home or self-care (01) ==
LOC: M ED 08:49 → MERGE 08:49 → M ED 14:41
DX: E88.09 Other disorders of plasma-protein metabolism, not elsewhere classified (principal); D64.9 Anemia, unspecified; R22.43 Localized swelling, mass and lump, lower limb, bilateral; E78.5 Hyperlipidemia, unspecified; Z85.46 Personal history of malignant neoplasm of prostate; Z88.8 Allergy status to other drugs, medicaments and biological substances; Z79.1 Long term (current) use of non-steroidal anti-inflammatories (NSAID); Z79.899 Other long term (current) drug therapy
CPT/HCPCS: 36415; 80048; 80076; 85025; 85049; 85055; 86850; 86900; 86901; 86920; 99284; J1642

== ENCOUNTER → 2024-07-16 | Outpatient (CLI) | payer MEDICARE, MEDICAID ==
[~2024-07-16] MED LIST changes: +ACET-910 PO; +BACTDSTA PO; +BRIM2OPD OU; +IBUP200T46 PO; +PANT-23 PO; +THERTAB52 PO; +VITA200020 PO
== END ==
LOC: M PLAIMG 14:38
PROVIDERS: ATTEND Registered Nurse
DX: I49.3 Ventricular premature depolarization (principal); R94.31 Abnormal electrocardiogram [ECG] [EKG]

== ENCOUNTER → 2024-07-17 | Outpatient (CLI) | payer MEDICARE, MEDICAID | LOC: M PLARAD 10:34 | PROVIDERS: ATTEND Internal Medicine | DX: C85.11 Unspecified B-cell lymphoma, lymph nodes of head, face, and neck (principal); C85.13 Unspecified B-cell lymphoma, intra-abdominal lymph nodes; C85.18 Unspecified B-cell lymphoma, lymph nodes of multiple sites | CPT/HCPCS: 78815; A9552 ==

== ENCOUNTER 2024-08-08 13:00 | Outpatient (RCR) | payer MEDICARE, MEDICAID ==
[2024-08-20] MEDS ORDERED: ONDA-282 PO (16:05)
[2024-08-20] MEDS ORDERED: ATRO2DRO4 SL (16:05)
[2024-08-20] MEDS ORDERED: ACET32TAB PO (16:05)
[2024-08-20] MEDS ORDERED: HYOS125TA PO (16:05)
[2024-08-20] MEDS ORDERED: ATIV1TAB10 PO (16:05)
[2024-08-20] MEDS ORDERED: MORP1SOL5 PO (16:05)
== END 2024-08-27 ==
LOC: M ONCR 13:00
PROVIDERS: ATTEND General Practice
DX: Z51.0 Encounter for antineoplastic radiation therapy (principal); C85.11 Unspecified B-cell lymphoma, lymph nodes of head, face, and neck